=== PATIENT | female | born 1990 | race Caucasian/White ===

== ENCOUNTER 2019-09-14 12:04 | Outpatient (CLI) | payer MEDICAID, SELFPAY ==
[2019-09-17 09:27] LABS: SARS-CoV-2 RNA Undetected (Undetected); SARS-CoV-2 Specimen Source Nasopharynx
== END 2019-09-14 12:24 ==
PROVIDERS: Family Medicine; PCP Physician Assistant; Visit Provider Physician Assistant
DX: J06.9 Acute upper respiratory infection, unspecified (principal)
CPT/HCPCS: U0003

== ENCOUNTER 2019-10-20 18:15 | Emergency (ER) | payer MEDICAID, SELFPAY ==
[2019-10-20 18:18] VITALS: BP 129/79; PULSE 75; TEMP 36.7; O2SAT 99
--- NOTE | 2019-10-20 18:34 | ED.GENADUL_ITS ---
Discharge Plan Disposition Patient Disposition: HOME Condition: Stable Discharge Details Chief Complaint: Headache Clinical Impression: Headache Primary Care Provider: Chely Cartwright ED Provider: Cheryl Servin Home Meds and New Rx's Prescriptions: New ondansetron HCl [Zofran] 4 mg tablet 4 mg PO Q8H PRN (Reason: nausea and vomiting) Qty: 10 RF: 0 Discharge Instructions Instructions: General Headache (ED) Additional Instructions: Follow up with primary care provider in 3-5 days. Return to ED sooner if any worsening or concerns. Increase oral fluids. Please take Tylenol or Ibuprofen with food every 4-6 hours as needed for pain and swelling. Return if any worsening headache, vomiting, thunderclap sensation, fever or any concerns. Referrals: Chely Cartwright [Primary Care Provider] - Discharge Data Discharge Date/Time-TO BE ENTERED AT DEPARTURE: 10/20/19 21:05 Medical Decision Making 20-year-old female with a history of headaches reports that this morning she began the day with a headache which is progressively gotten worse throughout the day. She describes it as frontal and occipital tension type headache. She reports nausea and dry heaving, positive photosensitivity and sensitivity to sound. Denies fever, chills, neck stiffness no abdominal pain no diarrhea. Denies aura type symptoms. Denies any recent head trauma. Patient states that her pain is moderate to severe gets worse with movement and talking. Labs ordered including, CBC, CMP UA normal saline 10 mg of Compazine 25 mg of Benadryl ordered IV. Will re-evaluate after medications. Patient has no signs or symptoms of infectious origin, no meningeal signs, no focal neuro deficits at this time I do not feel that imaging is necessary. Headache was responsive to fluids and medications. 191: Patient reevaluation she reports that she is feeling much better after medications normal saline is infusing without difficulty she is received approximately 500 mL. Will allow her to get the rest of the fluid and evaluate her urinalysis. Differential Diagnosis includes migraine headache, tension type headache, subarachnoid hemorrhage, meningitis, pseudoaneurysm surgery, sinus thrombosis. HPI General Mode of arrival: ambulatory . Date/Time Provider Initiated Documentation: 10/20/19 18:23 . Limitations to Documentation: no limitations . Information obtained by: patient . HPI Narrative: 20-year-old female with a history of headaches reports that this morning she began the day with a headache which is progressively gotten worse throughout the day. She describes it as frontal and occipital tension type headache. She reports nausea and dry heaving, positive photosensitivity and sensitivity to sound. Denies fever, chills, neck stiffness no abdominal pain no diarrhea. Denies aura type symptoms. Denies any recent head trauma. Patient states that her pain is moderate to severe gets worse with movement and talking. Related Data Home Medications Medication Instructions Recorded Confirmed ondansetron HCl [Zofran] 4 mg PO Q8H PRN #10 tab 10/20/19 Previous Rx's Medication Instructions Recorded ondansetron HCl [Zofran] 4 mg PO Q8H PRN #10 tab 10/20/19 Allergies Allergy/AdvReac Type Severity Reaction Status Date / Time Corticosteroids Allergy Unverified 10/20/19 18:22 (Glucocorticoids) ranitidine Allergy Unverified 10/20/19 18:22 General Stated Complaint: Headache CARSON: 3 Review of Systems Narrative: Constitutional: Negative for weight loss, alert and oriented, well groomed, normal body habitus, appears comfortable. HEENT: Denies trauma,, blurry vision, nasal discharge, sore throat, trouble swallowing. Positive frontal and occipital headache. Chest: Denies chest pain, palpitations, irregular rhythm, hypertension. Respiratory: Denies Shortness of breath, cough, hemoptysis. GI: Denies abdominal pain, vomiting, diarrhea, constipation. Positive nausea and dry heaving : Denies dysuria, hematuria, flank pain, rectal bleeding. Neuro: Denies dizziness, blurry vision, weakness, syncope,or facial numbness. Positive photosensitivity and sensitivity to sound. Hematologic: Denies easy bruising, intolerance to heat or cold, hair loss. [facility] Social History Smoking/Tobacco Use Status: Never Alcohol Intake: never Drug use: Never Substance use type: does not use Do you feel safe at home: Yes Exam Narrative Exam Narrative: Constitutional: Alert and oriented x3. Appears stated age. Normal body habitus. Patient is non-sickly appearing. Head: Normocephalic, no trauma. Eyes: Pupils PERRLA, Red reflex noted, EOM's intact. Eyelids symmetrical without lesions, discharge, or swelling. ENNT: Bilateral TM's WNL, External ear normal to inspection, no mastoid TTP, swelling, or erythema, Nasal turbinates WNL, no nasal discharge. Normal dentition, Posterior pharynx WNL, no exudate. Neck supple Chest: RRR, Normal S1, S2, distal pulses intact. Resp: Lungs clear to auscultation bilaterally, no wheezes, rales, or rhonchi. Musculoskeletal: Normal gait, 5/5 strength to all four extremities. Skin: No suspicious rashes or lesions. Capillary refill less than 2 sec. Neurologic: Cranial nerves II-XII intact. Alert and oriented x 3. DTR's intact. No facial droop, prison guard supervisor equal upper extremities 5+, intact dorsiflexion and plantar flexion Hematologic/Lymphatic: No ecchymosis, no lymphadenopathy. Course Vital Signs Vital signs: Vital Signs Temperature 36.7 C 10/20/19 18:18 Pulse 75 10/20/19 18:18 Blood Pressure 129/79 10/20/19 18:18 Pulse Oximetry 99 10/20/19 18:18 Temperature 36.7 C 10/20/19 18:18 Temperature Source Skin 10/20/19 18:18 Pulse 75 10/20/19 18:18 Respiratory Effort Non-Labored 10/20/19 18:23 Blood Pressure 129/79 10/20/19 18:18 Blood Pressure Position Sitting 10/20/19 18:18 Pulse Oximetry 99 10/20/19 18:18 Oxygen Delivery Method Room Air 10/20/19 18:18 Oxygen Flow Rate 0 10/20/19 18:18 Pain Level 7 10/20/19 18:23
[2019-10-20] MEDS: Ketorolac 15 MG/ML VIAL IVP (18:48)
[2019-10-20] MEDS: Prochlorperazine 10 MG/2 ML VIAL IVP (18:49)
[2019-10-20] MEDS: Normal Saline Flush 10 ML SYR IVP (18:49)
[2019-10-20] MEDS: diphenhydrAMINE 50 MG/ML VIAL 25 MG IVP (18:49)
[2019-10-20] MEDS: Normal Saline 1,000 ML 1000 ML IV (18:50)
[2019-10-20 18:51] LABS: Abs Immature Grans 0.02 k/cumm (0.0-0.09); Absolute Basophil Count 0.02 k/cumm (0.0-0.2); Absolute Eosinophil Count 0.06 k/cumm (0.0-0.7); Absolute Lymphocyte Count 2.04 k/cumm (1.2-3.4); Absolute Monocyte Count 0.34 k/cumm (0.11-0.7); Absolute Neutrophil Count 4.27 k/cumm (1.2-6.7); Basophils % 0.3; Eosinophils % 0.9; HCT 38.7 % (36.0-46.0); HGB 12.7 g/dL (12.0-15.5); Immature Grans % 0.3 %; Lymphocytes % 30.2; Mean Corp. HGB Concentration 32.8 g/dL (32.0-36.0); Mean Corpuscular Hemoglobin 28.9 pg (27.0-33.0); Mean Corpuscular Volume 88.2 fL (80-95); Mean Platelet Volume 9.7 fL (8.0-11.0); Neutrophils % 63.3; Platelet Count 211 x1000/uL (130-400); RBC 4.39 m/cumm (4.00-5.20); RBC Distribution Width 13.5 % (11.7-14.6); White Blood Cell Count 6.75 k/cumm (4.4-10.8)
[2019-10-20 18:59] LABS: Anion Gap 9.9 mmol/L (3-11); BUN 9 mg/dL (7-18); CO2 26.1 mmol/L (21.0-32.0); CREATININE 0.75 mg/dL (0.55-1.02); Chloride 102 mmol/L (98-107); Glucose 107 mg/dL (74-106); Potassium 3.4 mmol/L (3.5-5.1); Sodium 138 mmol/L (136-145)
[2019-10-20 19:33] LABS: Bilirubin Negative (Negative); Blood Moderate (Negative); Clarity Clear (Clear); Glucose Negative (Negative); Ketones Negative (Negative); Leukocyte Esterase Negative (Negative); Nitrite Negative (Negative); Specific Gravity 1.025 (1.005-1.025); Urobilinogen 0.2 EU/dL (Up TO 0.2)
[2019-10-20 19:47] LABS: Bacteria Negative HPF (Negative); C & S Indicated? No; Casts Negative LPF (Negative); Crystals Negative HPF (Negative); Epithelial Cells Negative HPF (Negative); Mucus Negative (Negative); Other Cells Negative (Negative)
== END 2019-10-20 21:05 | disposition home or self-care (01) ==
LOC: ER 20:13
PROVIDERS: Emergency Provider Registered Nurse Emergency; PCP Physician Assistant
DX: R51 Headache (principal); R11.0 Nausea
CPT/HCPCS: 36415; 80048; 81025; 96361; 96374; 96375; 99284; 81003; 81015; 85025; J0780; J1200; J1885

== ENCOUNTER 2019-12-10 08:00 | Outpatient (CLI) | payer MEDICAID, SELFPAY ==
[2019-12-10 23:24] LABS: COVID-19 RT-PCR UVMMC Result Negative (Negative)
== END 2019-12-10 08:20 ==
PROVIDERS: PCP Physician Assistant; Visit Provider Surgery
DX: Z01.818 Encounter for other preprocedural examination (principal); Z11.59 Encounter for screening for other viral diseases
CPT/HCPCS: U0003

== ENCOUNTER 2019-12-13 07:05 | Day surgery (SDC) | payer MEDICAID, SELFPAY ==
[2019-12-13 07:20] VITALS: BP 113/76; PULSE 87; RESP 16; TEMP 36.3; O2SAT 97
[2019-12-13] MEDS: Lactated Ringers 1,000 ML 80 ML IV (07:53)
--- NOTE | 2019-12-13 09:00 | STOM_PTH ---
PATIENT: Avis Patel LOC: [facility] U#:[id number] AGE/SX: 29/F ROOM: RE12/13/[address]: Ana Monroe : 1990 BED: DIS: 12/13/2019 SPEC #: [id number] RECD: 12/13/19 12:37 STATUS: AMADA REMatty #: [id number] SKIP: 12/13/19 09:[address]: Ana Monroe DEPT: Surgical Specimen RECD BY: Yarelis Jewell ENTERED: 12/13/19 12:39 SP TYPE: STOMACH OTHR DR: Chely Cartwright Tissues: 1 - BIOPSY BOWEL 2 - STOMACH BIOPSY 3 - STOMACH BIOPSY 4 - ESOPHAGUS BIOPSY 5 - ESOPHAGUS BIOPSY Procedures: GROSS AND MICRO LEVEL 4 Comments: [id number]
[2019-12-13 09:13] VITALS: BP 99/47; PULSE 64; RESP 14; TEMP 36.4; O2SAT 100
--- NOTE | 2019-12-13 09:13 | W.PM.ENDDOP ---
Date of service: 12/13/19 Time of Service: 09:13 Endoscopy Report DATE OF PROCEDURE: 12/13/19 PRE-OP DIAGNOSIS: medication refractory GERD POST-OP DIAGNOSIS: same PROCEDURE: EGD w/ bx SURGEON: Ana Monroe ANESTHESIA: MAC ESTIMATED BLOOD LOSS: 1 PATHOLOGY: other COMPLICATIONS: None DISPOSITION: same day PROCEDURE DESCRIPTION: After informed consent was obtained the patient was take to the procedure room and placed in a supine position. Monitors were applied and a time out was done. The patients name, date of , procedure type, allergies to medications and metal in their body was reviewed. A bite block was placed and the patient was sedated. Once sedated and comfortable the gastroscope was advanced through the oropharynx which was grossly normal into the esophagus. The proximal and mid-esophagus were nl. In the distal esophagus there was nl noted. The scope was advanced into the stomach and through the pylorus into the 3rd portion of the duodenum. The duodenum was noted to be nl. Biopsies were done randomly in the duodenal bulb the antrum, and the greater curvature, the GE junction, and the distal esophagus. All specimens are retrieved and no changes noted.. The scope was retracted back into the stomach and biopsies were done to rule out H. pylori. There were no ulcers. The scope was retroflexed. The cardia and fundus were noted to be normal. There no a hiatal hernia noted. The scope was retracted back into the esophagus and biopsies were done of the GE junction to rule out Cuadra's. The Z line was regular. The GE junction was at nl cm. The scope was removed and the patient was woken up and taken back to [facility] in stable condition. in office in 2 wks. Results of today's study do not explain her continuing nausea. They seems to control of her reflux symptoms that she is having. It has not helped with nausea. We will check an ultrasound to rule out gallstones. Follow up:
[2019-12-13 09:18] VITALS: BP 109/52; PULSE 70; RESP 19; TEMP 36.4; O2SAT 99
[2019-12-13 09:23] VITALS: BP 113/71; PULSE 64; RESP 14; TEMP 36.4; O2SAT 98
--- NOTE | 2019-12-13 09:32 | W.PM.DSUDISC ---
Discharge Plan Disposition Patient Disposition: HOME Condition: Good Discharge Details Reason For Visit: GERD Attending Provider: Ana Monroe Primary Care Provider: Chely Cartwright Home Meds and New Rx's Prescriptions: No Action calcium carbonate [Tums] 200 mg calcium (500 mg) tablet,chewable 200 mg PO BID RF: 0 fluoxetine 60 mg tablet 40 mg PO DAILY RF: 0 omeprazole 20 mg capsule,delayed release(DR/EC) 20 mg PO DAILY RF: 0 naproxen sodium 275 mg tablet 550 mg PO Q8H RF: 0 Cryselle (28) 0.3-30 mg-mcg tablet 1 tab PO DAILY RF: 0 ondansetron HCl [Zofran] 4 mg tablet 4 mg PO Q8H PRN (Reason: nausea and vomiting) Qty: 10 RF: 0 Discharge Instructions Additional Instructions: Findings:normal- pd Bx Follow up:2-3 wks Continue with lifestyle modifications: no alcohol, tobacco products, Aspirin or NSAID's (ibuprofen, Motrin, Naprosyn, aleve, etc), soda pop/any carbonated beverages, caffeine (including tea & chocolate), and acidic foods, (tomatoes, citrus, onions, peppermints) spicy foods. Do not lie down for 30 minutes after eating, and do not eat 2 hours prior to bedtime. Avoid wearing tight fitting clothing/ belts. Schedule US Please call if you develop: fevers >101.5 Nausea or Vomiting Abdominal pain that is not transient DAY SURGERY UNIT POST COLONOSCOPY INSTRUCTIONS 1. Because there will be medication in your system for the next 24 hours, you may feel a little sleepy. Your coordination will be affected. Therefore: a. Do not drive or operate dangerous equipment for 24 hours. b. Do not drink alcohol beverages for 24 hours (not even beer). c. Plan to go home and rest for the day. 2. Generally there are no restrictions on your activity after a day or so has gone by, but you may feel a bit fatigued for a few days. 3 After you arrive home you may have a light meal and return to a normal diet as you can tolerate it without feeling sick to your stomach. 4. After surgery, you may feel pain or discomfort. This should be only transient, but if it persists please contact your doctor. 5. If there are any questions regarding the findings of your procedure, please feel free to contact your doctor. 6. If you are unable to contact your doctor with a problem, contact the hospital at [phone]. 7. Continue all your regular medications unless directed otherwise. I understand the above instructions and have no questions. Signature of Patient or Responsible Adult Escort Date/Time Name of Responsible Adult Escort Signature of Nurse Date/Time Activity:: No strenuous activity or lifting over 20 pounds x 24 hours Diet:: Small light meals x24 hours Discharge Orders Discharge Orders: Discharge Order (Routine); Ordered 12/13/19 Ordered By: Ana Monroe DS: Diagnosis Discharge Diagnosis (1) Chronic GERD: Status: Acute (2) Nausea: Status: Acute (3) Abdominal pain: Status: Acute
[2019-12-13 09:38] VITALS: BP 103/66; PULSE 67; RESP 17; TEMP 36.5; O2SAT 96
[2019-12-13 10:27] VITALS: BP 122/65; PULSE 62; RESP 18; TEMP 36.7; O2SAT 98
== END 2019-12-13 10:45 | disposition home or self-care (01) ==
PROVIDERS: PCP Physician Assistant; Visit Provider Surgery
PROC: 0DJ68ZZ Inspection of Stomach, Via Natural or Artificial Opening Endoscopic (ICD-10-PCS; CPT 43235; principal; 2019-12-13 08:15)
DX: R11.0 Nausea; R10.9 Unspecified abdominal pain; K31.89 Other diseases of stomach and duodenum; K21.0 Gastro-esophageal reflux disease with esophagitis
CPT/HCPCS: 43239; 81025; 88305; J2001; J2704

== ENCOUNTER 2019-12-17 00:15 | Outpatient (CLI) | payer MEDICAID, SELFPAY ==
--- NOTE | 2019-12-17 06:45 | DI.US_ITS ---
EXAM: US ABDOMEN CLINICAL HISTORY: nausea, chronic gerd, R11.0, K21.9 TECHNIQUE: Ultrasound abdomen performed using standard protocol. COMPARISON: No exams were available for comparison FINDINGS: LIVER: Mildly enlarged mild fatty infiltration. No focal liver lesions are seen.. GALLBLADDER: No evidence of cholelithiasis. No evidence of wall thickening. No pericholecystic fluid identified. KIDNEYS: Kidneys are symmetric in size. No evidence of renal calculi. No evidence of hydronephrosis. No renal mass or cyst identified. BILIARY SYSTEM: No intrahepatic or extrahepatic biliary ductal dilation. BRADEN'S SIGN: Negative. PANCREAS: Obscured by bowel gas. SPLEEN: Not enlarged. ABDOMINAL AORTA AND IVC: Visualized portions normal caliber. ASCITES: None seen. IMPRESSION: Mild hepatic steatosis. No biliary dilatation or cholelithiasis.. DATA REPOSITORY:
== END 2019-12-17 00:35 ==
PROVIDERS: PCP Physician Assistant; Visit Provider Surgery
DX: K21.9 Gastro-esophageal reflux disease without esophagitis (principal); R11.0 Nausea; K76.0 Fatty (change of) liver, not elsewhere classified
CPT/HCPCS: 76700

== ENCOUNTER 2019-12-27 02:45 | Outpatient (CLI) | payer MEDICAID, SELFPAY ==
[2019-12-27 10:31] LABS: Hemoglobin A1C 5.5 % (3.8-5.6)
[2019-12-27 11:40] LABS: Calculated LDL 152 mg/dL (<100); Cholesterol 209 mg/dL (<200); HDL Cholesterol 22 mg/dL (40-60); Triglyceride 175 mg/dL (<150)
== END 2019-12-27 03:05 ==
PROVIDERS: PCP Physician Assistant; Visit Provider Surgery
DX: K76.0 Fatty (change of) liver, not elsewhere classified (principal)
CPT/HCPCS: 36415; 80061; 83036

== ENCOUNTER 2020-04-22 08:58 | Outpatient (CLI) | payer MEDICAID, SELFPAY ==
[2020-04-26 16:10] LABS: Patient Race White; SARS-CoV-2 RNA Undetected (Undetected); SARS-CoV-2 Specimen Source Nasal
== END 2020-04-22 09:18 ==
PROVIDERS: PCP Physician Assistant; Visit Provider Physician Assistant
DX: Z20.828 Contact with and (suspected) exposure to other viral communicable diseases (principal)
CPT/HCPCS: U0003

== ENCOUNTER 2021-11-08 02:40 | Emergency (ER) | payer MEDICAID, SELFPAY ==
[2021-11-08 02:50] VITALS: BP 152/97; PULSE 79; RESP 18; TEMP 36.3; O2SAT 99
--- NOTE | 2021-11-08 03:00 | DI.CT_ITS ---
Exam(s) CT HEAD W EXAM: CT HEAD W CLINICAL HISTORY: frontal BRAUN, , eval venous sinus thrombos. TECHNIQUE: Imaging Protocol: Axial computed tomography images with coronal and sagittal reformatted images were created and reviewed. CONTRAST MATERIAL: Intravenous: Visipaque 320ml contrast volume:100 mL COMPARISON: No exams were available for comparison FINDINGS: Ventricles and Extra axial spaces: Normal in size and morphology for the patient's age. Hemorrhage: None. Cerebral parenchyma: Normal. Enhancement: No suspicious enhancement. [place]: Unremarkable. Midline shift: None. Brainstem/Cerebellum: Normal. Calvarium: Normal. Visualized Paranasal sinuses/Mastoids: Clear. There is superior sagittal sinus, straight sinus, transverse sinuses and sigmoid sinuses are patent. No filling defects are seen to suggest venous thrombosis. IMPRESSION: 1. Normal CT scan of the head. 2. No evidence of a venous sinus thrombosis. RADIATION DOSE DELIVERED: 1,083.23mGy.cm Total DLP DATA REPOSITORY: All CT scans at this facility are submitted to the National Radiology Data Registry (NRDR) Dose Index Registry (DIR) with the [employer] (ACR). RADIATION OPTIMIZATION: All CT scans at this facility use at least one of these dose optimization te chniques: automated exposure control; mA and/or kV adjustment per patient size (includes targeted exa ms where dose is matched to clinical indication); or iterative reconstruction.
--- NOTE | 2021-11-08 03:21 | ED.GENADUL_ITS ---
Discharge Plan Disposition Patient Disposition: HOME Condition: Good Discharge Details Clinical Impression: Headache Primary Care Provider: Chely Cartwright ED Provider: Taye Clark Home Meds and New Rx's Prescriptions: Continued calcium carbonate [Tums] 200 mg calcium (500 mg) tablet,chewable 200 mg PO BID fluoxetine 60 mg tablet 40 mg PO DAILY omeprazole 20 mg capsule,delayed release(DR/EC) 20 mg PO DAILY naproxen sodium 275 mg tablet 550 mg PO Q8H Cryselle (28) 0.3-30 mg-mcg tablet 1 tab PO DAILY pantoprazole 40 mg tablet,delayed release (DR/EC) 40 mg PO DAILY Qty: 30 12RF ondansetron HCl [Zofran] 4 mg tablet 4 mg PO Q8H PRN (Reason: nausea and vomiting) Qty: 10 0RF Discharge Instructions Instructions: General Headache (ED) Additional Instructions: If you notice any worsening of your symptoms, or any new symptoms such as vomiting, diarrhea, fever, chills, shortness of breath, chest pain, numbness, w eakness, or fainting , please return immediately to the emergency department for reevaluation. Please follow up with your primary care provider as soon as possible for reassessment and reevaluation. As always, it was a pleasure participating in your medical care today. Referrals: Chely Cartwright [Primary Care Provider] - Medical Decision Making 30-year-old female with a past medical history of chronic headache, who is 1 month , presents today for evaluation of headache. Patient states that at 3 PM this morning she had a gradual onset of her headaches. She has associated photophobia and phonophobia. She denies any significant visual changes, but has not been able to open her eyes secondary to the pain of the right. She states that she has pain in the back of her head, top of the head but also notably in the front of her head. She states that normally she never gets pain in the front. The patient denies any headache red flags of worst headache of life, thunderclap headache, neck pain, fever, chills, concerning family history of polycystic kidney disease, Marfan syndrome, Fatimah-Danlos syndrome, abdominal aortic aneurysm, aortic dissection, or intracranial aneurysm. She has no other complaints at this time. No other modifying factors. Patient has not had any neuro imaging in the past decade Physical exam demonstrates no focal neurologic deficits, no meningeal signs. Differential is highest for migraine, however of concern the patient is , and she does typically have frontal head pain. Differential does include cerebral venous sinus thrombosis. We will get a CT scan of the head with contrast. Will treat with migraine cocktail of Compazine, Toradol, acetaminophen, Benadryl, steroids. Will monitor closely and reassess. Of note she has a documented allergy for steroids but this was secondary to her chronic steroid eyedrop which increased her intraocular pressure, not from a one-time IV dose. 4:[address] scan results have returned, negative for evidence of venous thrombosis, no other acute process. On reassessment patient feels much better. Headache is go ne. Repeat neurologic assessment shows no focal neurologic. Patient stable for discharge. Patient is requesting that she go home. Diagnosis migraine headache. I have extensively reviewed the treatment plan and discharge instructions with the patient. I have addressed all patient concerns at this time. The patient was made aware of what symptoms to monitor for that would warrant a return to the emergency department. Discussed the plan with the patient, they demonstrate verbal understanding and agreement with our assessment and plan at this time. The documentation in this chart was dictated using [employer] dictation software. Please excuse any dictation errors. FINDINGS: Brain: Unremarkable white matter. No mass effect. No abnormal enhancing lesions. Cerebral ventricles: Unremarkable. No ventriculomegaly. Bones/joints: Unremarkable. No acute fracture. Paranasal sinuses: Visualized sinuses are unremarkable. No fluid levels. Mastoid air cells: Visualized mastoid air cells are well aerated. Soft tissues: Unremarkable. IMPRESSION: No acute intracranial abnormality FINDINGS: Superior sagittal sinus: Patent. Straight sinus: Patent. Transverse sinuses: Patent. Sigmoid sinuses: Patent. Internal jugular veins: Limited visualized internal jugular veins are patent. IMPRESSION: No venous thrombosis. Thank you for allowing us to participate in the care of your patient. Dictated and Authenticated by: Vinnie Cornejo MD 11/08/2021 4:35 AM Eastern Time ([place] & [place]) HPI General Date/Time Provider Initiated Documentation: 11/08/21 02:58 . HPI Narrative: 30-year-old female with a past medical history of chronic headache, who is 1 month , presents today for evaluation of headache. Patient states that at 3 PM this morning she had a gradual onset of her headaches. She has associated photophobia and phonophobia. She denies any significant visual changes, but has not been able to open her eyes secondary to the pain of the right. She states that she has pain in the back of her head, top of the head but also notably in the front of her head. She states that normally she never gets pain in the front. The patient denies any headache red flags of worst headache of life, thunderclap headache, neck pain, fever, chills, concerning family history of polycystic kidney disease, Marfan syndrome, Fatimah-Danlos syndrome, abdominal aortic aneurysm, aortic dissection, or intracranial aneurysm. She has no other complaints at this time. No other modifying factors. Patient has not had any neuro imaging in the past decade Related Data Home Medications Medication Instructions Recorded Confirmed ondansetron HCl 4 mg tablet 4 mg PO Q8H PRN nausea and 10/20/19 12/13/19 (Zofran) vomiting #10 tabs calcium carbonate 200 mg calcium 200 mg PO BID 12/04/19 12/13/19 (500 mg) chewable tablet (Tums) fluoxetine 60 mg tablet 40 mg PO DAILY 12/04/19 12/13/19 naproxen sodium 275 mg tablet 550 mg PO Q8H 12/04/19 12/13/19 norgestrel 0.3 mg-ethinyl 1 tab PO DAILY 12/04/19 12/13/19 estradiol 30 mcg tablet (Go (28)) omeprazole 20 mg capsule,delayed 20 mg PO DAILY 12/04/19 12/13/19 release pantoprazole 40 mg tablet,delayed 40 mg PO DAILY #30 tabs 12/19/19 release Previous Rx's Medication Instructions Recorded ondansetron HCl 4 mg tablet 4 mg PO Q8H PRN nausea and 10/20/19 (Zofran) vomiting #10 tabs pantoprazole 40 mg tablet,delayed 40 mg PO DAILY #30 tabs 12/19/19 release Allergies Allergy/AdvReac Type Severity Reaction Status Date / Time Corticosteroids Allergy It Unverified 11/08/21 02:55 (Glucocorticoids) increased the pressure in my eye ranitidine AdvReac Severe Massive Unverified 11/08/21 02:55 migraine General Stated Complaint: Headache CARSON: 3 Review of Systems All systems reviewed & are unremarkable except as noted in HPI and below PFSH All Active Problems (Updated 11/08/21 @ 04:47 by Taye Clark DO) Headache (Acute) Fatty liver (Acute) Abdominal pain (Acute) Chronic GERD (Acute) Nausea (Acute) Medical History Anxiety De Quervain's disease (tenosynovitis) Depression Folliculitis GERD (gastroesophageal reflux disease) Memory loss Migraine variant Prolonged depressive reaction as adjustment reaction Shoulder pain Tendonitis of ankle or foot Surgical History History of section Social History Smoking/Tobacco Use Status: Never Smoking risk assessment performed?: Yes Alcohol Intake: never Drug use: Never Substance use type: does not use Do you feel safe at home: Yes Do you feel safe in your relationship?: Yes Exam Narrative Exam Narrative: 1.Const: Well-nourished, Well-developed, appearing stated age 2.Eyes: PERRL, no conjunctival injection, and symmetrical lids. 3.ENT: Atraumatic external nose and ears. Moist MM. Neck: Symmetric, trachea midline, No thyromegaly. Patient demonstrates good movement of cervical neck. There is no nuchal rigidity, no nuchal tenderness. Patient is able to flex the neck without any difficulty or significant pain. Negative Kernig's and Brudzinski sign. 4.CVS: +S1/S2, No murmurs or gallops. Peripheral pulses 2+ and equal in all extremities. Brisk capillary refill in all extremities. 5.RESP: Unlabored respiratory effort. Clear to auscultation bilaterally. No wheezes rales or rhonchi 6.GI: Soft, Nontender/Nondistended, No hepatosplenomegaly. No guarding or rebound. 7.MSK: Normocephalic/Atraumatic, Extremities w/o deformity or ttp No cyanosis or clubbing, Normal movement of all extremities 8.Skin: Warm, Dry. No rashes or lesions. 9.Neuro: senior telecommunications engineer II-XII grossly intact. Sensation grossly intact, no focal neurologic deficits. All 6 cardinal planes of vision are fully intact. No evidence of rotatory or vertical nystagmus. The patient demonstrated a normal [id number], good dexterity. There was no evidence of dysdiadochokinesia. Patient was able to ambulate without difficulty. There was no wide-based gait. Romberg testing was normal. [id number] testing was normal. Sensation was intact bilaterally as well as muscle strength bilaterally for all extremities. Patient was able to verbalize butter cup with no slurring, or miss pr onunciation. 10.Psych: (AAO) x3. Appropriate mood and affect Course Vital Signs Vital signs: Vital Signs Temperature 36.3 C L 11/08/21 02:50 Pulse 79 11/08/21 02:50 Respiratory Rate 18 11/08/21 02:50 Blood Pressure 152/97 H 11/08/21 02:50 Pulse Oximetry 99 11/08/21 02:50 Temperature 36.3 C L 11/08/21 02:50 Temperature Source Temporal Artery Scan 11/08/21 02:50 Pulse 79 11/08/21 02:50 Respiratory Rate 18 11/08/21 02:50 Respiratory Effort Non-Labored 11/08/21 02:53 Blood Pressure 152/97 H 11/08/21 02:50 Blood Pressure Position Sitting 11/08/21 02:50 Pulse Oximetry 99 11/08/21 02:50 Oxygen Delivery Method Room Air 11/08/21 02:50 Oxygen Flow Rate 0 11/08/21 02:50 Pain Level 10 11/08/21 02:53
[2021-11-08] MEDS: diphenhydrAMINE 50 MG/ML VIAL 25 MG IVP (04:11)
[2021-11-08] MEDS: Normal Saline 1,000 ML 1000 ML IV (04:11)
[2021-11-08] MEDS: ACETAMINOPHEN 1,000 MG/100 ML BTL 400 MG IVPB (04:11)
[2021-11-08] MEDS: Ketorolac 15 MG/ML VIAL IVP (04:11)
[2021-11-08] MEDS: methylPREDNISolone SUCC 125 MG VIAL IVP (04:12)
[2021-11-08] MEDS: Prochlorperazine 10 MG/2 ML VIAL IVP (04:12)
--- NOTE | 2021-11-08 04:35 | DI.VRAD_ITS ---
PROCEDURE INFORMATION: Exam: CT Head With Contrast Exam date and time: 11/08/2021 3:21 AM Age: 30 years old Clinical indication: Other: Frontal BRAUN, , eval venous sinus thrombos TECHNIQUE: Imaging protocol: Computed tomography of the head with intravenous contrast. 3D rendering (Not supervised by radiologist): MIP and/or 3D reconstructed images were created by the technologist. Contrast material: 320; Contrast volume: 100 ml; Contrast route: INTRAVENOUS (IV); COMPARISON: No relevant prior studies available. FINDINGS: Brain: Unremarkable white matter. No mass effect. No abnormal enhancing lesions. Cerebral ventricles: Unremarkable. No ventriculomegaly. Bones/joints: Unremarkable. No acute fracture. Paranasal sinuses: Visualized sinuses are unremarkable. No fluid levels. Mastoid air cells: Visualized mastoid air cells are well aerated. Soft tissues: Unremarkable. IMPRESSION: No acute intracranial abnormality. PROCEDURE INFORMATION: Exam: CT Angiography Head With Contrast, Venography Exam date and time: 11/08/2021 3:21 AM Clinical indication: Other: Frontal BRAUN, , eval venous sinus thrombos TECHNIQUE: Imaging protocol: Computed tomography angiography of the head with contrast. Exam focused on the veins. COMPARISON: No relevant prior studies available. FINDINGS: Superior sagittal sinus: Patent. Straight sinus: Patent. Transverse sinuses: Patent. Sigmoid sinuses: Patent. Internal jugular veins: Limited visualized internal jugular veins are patent. IMPRESSION: No venous thrombosis. Dictated and Authenticated by: Vinnie Cornejo MD. Ordering:THERESE Kothari MD
[2021-11-08 04:56] VITALS: BP 103/68; PULSE 61; RESP 16; O2SAT 100
== END 2021-11-08 04:58 | disposition home or self-care (01) ==
PROVIDERS: Emergency Provider Student in an Organized Health Care Education/Training Program; PCP Physician Assistant
DX: G43.909 Migraine, unspecified, not intractable, without status migrainosus (principal); R51.9 Headache, unspecified
CPT/HCPCS: 96361; 96365; 96375; 99284; 70460; J0131; J0780; J1200; J1885; J2930

== ENCOUNTER 2023-01-09 21:26 | Emergency (ER) | payer MEDICAID, SELFPAY ==
[2023-01-09] VITALS (20 sets, daily range): BP systolic 105–123; BP diastolic 62–73; PULSE 78–103; RESP 12–36; TEMP 36.3; O2SAT 96–99
--- NOTE | 2023-01-09 21:30 | RT.EKG_ITS ---
APPROVED REPORT Exam: Resting ECG Reason for Exam: dizziness Patient Location: E HR:98 bpm ECG Measurements Heart Rate 98 AXIS NC 168 P 37 QRSd 109 QRS -17 QT 375 T 16 QTc 478 Conclusion Sinus rhythm...normal P axis, V-rate 60- 99 sinus rhythm, left axis
--- OUTSIDE RECORDS SUMMARY | 2023-01-09 21:39 | XMS_ITS | Continuity of Care Document ---
Author Name Unknown Organization [facility] Ambulatory Clinics Address [address] [place] [address] Care Team Providers Care Air Duct Mechanic Name Role Phone Chely Cartwright Primary Care Physician Unavaila ble Encounter [facility] NBR [id number] Date(s): 12/06/22 - 12/06/22 [facility] Ambulatory Clinics [address] [place] [address]- [place] Discharge Disposition: Home Allergies, Adverse Reactions, Alerts Substance Reaction Severity Status Eye Drop 1 Severe Active raNITIdine Headache Moderate Active 1Steroid eye drops increased eye pressure Assessment and Plan Future Appointments Appointment Date:12/30/2022 10:15:00 AM Scheduled Provider:Vanna William Location:[facility] Appointment Type:OB Follow Up Medications magnesium gluconate 250 mg oral tablet 250 mg 1 tab, Oral, Daily, # 30 tab, 0 Refill(s) Start Date: 12/03/22 Status: Ordered Multivitamins with FA 0.8 mg oral tablet 1 tab, Oral, Daily, # 60 tab, 0 Refill(s) Start Date: 12/03/22 Status: Ordered sertraline 25 mg oral tablet 25 mg = 1 tab, Oral, Daily, # 90 tab, 4 Refill(s), Pharmacy: [id number] Start Date: 03/26/22 Stop Date: 06/19/23 Status: Ordered Tums 500 mg oral tablet, chewable 500 mg = 1 tab, Chewed, Daily, PRN as needed for dyspepsia, # 12 tab, 0 Refill(s) Start Date: 12/03/22 Status: Ordered Problem List Condition Confirmation Course Effective Dates Status Health St atus Informant Previous section 1 Confirmed Active Normal in multigravida in first trimester Confirmed Active Confirmed 09/21/22 Active Rh negative Confirmed Active 28529, 2021 Procedures Procedure Date Related Diagnosis Body Site Status delivery 2021 [facility] ed delivery 2017 [facility] ed Social History Social History Type Response Smoking Status Smoking tobacco use: Never tobacco user;Never entered on: 12/03/22 Sex Patient Care team information Care Team Personnel Name: Chely Cartwright Position: Physician Member Role: Primary Care Physician
--- OUTSIDE RECORDS SUMMARY | 2023-01-09 21:39 | XMS_ITS | Continuity of Care Document ---
Author Name Unknown Organization [facility] Ambulatory Clinics Address [address] [place] [address] Care Team Providers Care Telesales Agent Name Role Phone Chely Cartwright Primary Care Physician Unavaila ble Encounter [facility] NBR [id number] Date(s): 12/30/22 - 12/30/22 [facility] Ambulatory Clinics [address] [place] [address]- [place] Encounter Diagnosis Encounter for supervision of normal in multigravida in second trimester(Discharge Diagnosis) - 12/30/22 Encounter for screening examination for sexually transmitted disease(Discharge Diagnosis) - 12/30/22 Discharge Disposition: Home or Self Care Attending Physician: Vanna William Allergies, Adverse Reactions, Alerts Substance Reaction Severity Status Eye Drop 1 Severe Active raNITIdine Headache Moderate Active 1Steroid eye drops increased eye pressure Assessment and Plan Future Appointments Appointment Date:02/09/2023 02:00:00 PM Scheduled Provider:Carroll Terry MD Location:[facility] Appointment Type:OB Follow Up Future Scheduled Tests Radiology* US OB Greater Than 14 Weeks 02/09/23 Functional Status 12/30/22 Other exposure to Infectious Disease Non e Medications magnesium gluconate 250 mg oral tablet 250 mg 1 tab, Oral, Daily, # 30 tab, 0 Refill(s) Start Date: 12/03/22 Status: Ordered Multivitamins with FA 0.8 mg oral tablet 1 tab, Oral, Daily, # 60 tab, 0 Refill(s) Start Date: 12/03/22 Status: Ordered sertraline 25 mg oral tablet 25 mg = 1 tab, Oral, Daily, # 90 tab, 4 Refill(s), Pharmacy: [id number] Start Date: 03/26/22 Stop Date: 06/19/23 Status: Ordered Tums 500 mg oral tablet, chewable 500 mg = 1 tab, Chewed, Daily, PRN as needed for dyspepsia, # 12 tab, 0 Refill(s) Start Date: 12/03/22 Status: Ordered Problem List Condition Confirmation Course Effective Dates Status Health St atus Informant Previous section 1 Confirmed Active Normal in multigravida in first trimester Confirmed Active Encounter for supervision of normal in multigravida in second trimester Confirmed Active Confirmed 09/21/22 Active Rh negative Confirmed Active 75608, 2021 Procedures Procedure Date Related Diagnosis Body Site Status delivery 2021 [facility] ed delivery 2017 [facility] ed Results Most recent to oldest [Reference Range]: 1 Protein Urine Dipstick Trace (12/30/22 10:26 AM) Glucose Urine Dipstick Negative (12/30/22 10:26 AM) Urine Color Urine Dipstick Dark yellow (12/30/22 10:26 AM) Urine Appearance Urine Dipstick Cloudy (12/30/22 10:26 AM) Vital Signs Most recent to oldest [Reference Range]: 1 2 Blood Pressure [90-140/60-90 mmHg] 86/58 mmHg *LOW* (12/30/22 10:26 AM) Weight 111.7 kg (12/30/22 10:26 AM) Weight Measured (lbs) 246.256 lb (12/30/22 10:26 AM) [place] Body Weight Calculated 69.587 kg (12/30/22 10:26 AM) Height 179 cm (12/30/22 10:26 AM) Height/Length Measured (inches) 70.47 in ch (12/30/22 10:26 AM) BSA Measured 2.36 m2 (12/30/22 10:26 AM) Body Mass Index 34.86 kg/m2 (12/30/22 10:26 AM) 34.86 kg/m2 (12/30/22 10:26 AM) Social History Social History Type Response Smoking Status Smoking tobacco use: Never tobacco user;Never entered on: 12/03/22 Sex Note * Jessica Tang: PERFORM Event Display: OB Note Authored Date: [id number] Transcribed Labs Entered On: 12/28/2022 16:29 EDT Performed On: 12/28/2022 16:27 EDT by Jessica Tang Transcribed Labs Blood Type, Transcribed : A negative Rubella,Transcribed : Immune Rubella Date Performed : 12/03/2022 EDT Hepatitis B, Transcribed : Negative Hepatitis B Date Performed : 12/03/2022 EDT HIV Antibodies, Transcribed : Negative HIV Date Performed : 12/03/2022 EDT RPR, Transcribed : Negative RPR Date Performed : 12/03/2022 EDT ABS, Transcribed : Negative ABS Date Performed : 12/03/2022 EDT Other Transcribed Labs : urine culture done 12/03/2022 Genetic Testing Date Performed : 12/03/2022 EDT Genetic Testing, Transcribed : Yes Genetic Testing, Results Text : MaterniT 21: negative Jessica Tang - 12/28/2022 16:27 EDT Electronically Signed on 12/28/2022 04:27 PM Jessica Tang Physician Outpatient Note * Vanna William: PERFORM Event Display: Office Clinic Note Physician Authored Date: [id number] WALLACE MELTON :1990 Age:32 years Sex:Female Visit Date:12/30/2022 Primary Care Physician: Chely Cartwright RAMU/EGA Gestational Age (EGA) and RAMU? * Note: EGA calculated as of 12/30/2022 ?? RAMU:??06/28/2023?EGA*:??14 weeks 2 days ?Type:??Authoritative?Method Date:??09/21/2022 ?Method:??Last Menstrual Period??(09/21/2022) ?Confirmation:??Confirmed ?Description:??-- ?Comments:??-- ?Entered by:??Jessica Tang on 12/03/2022? Other RAMU Calculations for this : ?No additional RAMU calculations have been recorded for this Chief Complaint OB follow appointment, 14.2 weeks, no concerns Physical Exam Vitals & Measurements BP:??86/58?? HT:??179??cm?? WT:??111.7??kg?? BMI:??34.86?? BMI:??34.86?? BSA:??2.36?? Risk Factors Risk Factors, Antepartum Current Preg: Previous uterine scarring, Other: Previous Sectionsx2 (12/03/22) Assessment/Plan 1.??Encounter for supervision of normal in multigravida in second trimester??Z34.82 Feeling good. 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 Recommended staying well hydrated. Set up US for 5-6 weeks. No lof/bleeding. Some intermittent cramping. Ordered: US OB Greater Than 14 Weeks, 12/30/22, Routine, Reason: anatomy screening, Transport Mode: Ambulatory, Encounter for supervision of normal in multigravida in second trimester ?? 2.??Encounter for screening examination for sexually transmitted disease??Z11.3 Ordered: Chlamydia trachomatis and Neisseria gonorrhoeae (GeneXpert), Urine, Routine Collect, 12/30/22 10:30:00 EDT, Once, Nurse collect, Print Label, Encounter for screening examination for sexually transmitted disease ?? Cards Exam and Notes ?? Exams and Notes ?? Date:??12/30/22 EGA:??14w2d Weight (lbs kg):??*246... Fundal Height (cm):??14 ? Blood Pressure (mmHg):??86/58 ? Cervix Exam (Dil cm/Eff %/Sta -):--/--/--?? Labor S/S:??None Urine Glucose:??Negative Urine Protein:??Trace Next Visit:??+5 weeks from 12/30/2022 Baby A?FHR:??155 ? Movement:?Presentation:??-- ? Date:??12/03/22 EGA:??10w3d Weight (lbs kg):??*250... Fundal Height (cm):??10 ? Blood Pressure (mmHg):??114/76 ? Cervix Exam (Dil cm/Eff %/Sta -):--/--/--?? Labor S/S:??None Urine Glucose:??Negative Urine Protein:??Trace Next Visit:??+4 weeks from 12/03/2022 Baby A?FHR:??150 ? Movement:?Presentation:??-- ? Date:??10/20/22 EGA:??4w1d?? Weight (lbs kg):??*248... Fundal Height (cm):??-- ? Blood Pressure (mmHg):??110/77 ? Cervix Exam (Dil cm/Eff %/Sta -):--/--/--?? Labor S/S:?? Urine Glucose:?? Urine Protein:?? Next Visit:? Problem List/Past Medical History Ongoing Encounter for supervision of normal in multigravida in second trimester Normal in multigravida in first trimester Previous section Rh negative Historical Procedure/Surgical History ??? delivery (2021)??? delivery (2017) Medications magnesium gluconate 250 mg oral tablet, 250 mg= 1 tab, Oral, Daily Multivitamins with FA 0.8 mg oral tablet, 1 tab, Oral, Daily sertraline 25 mg oral tablet, 25 mg= 1 tab, Oral, Daily, 4 refills Tums 500 mg oral tablet, chewable, 500 mg= 1 tab, Chewed, Daily, PRN Allergies Eye Drop raNITIdine??(Headache) Social History Alcohol Never Electronic Cigarette/Vaping Electronic Cigarette Use: Never. Employment/School Employed, Work/School description: self employed.. Home/Environment Lives with Children, Spouse. Living situation: Home/Independent. Sexual Sexually active: No. Substance Use Never Tobacco Never tobacco user Tobacco Use:. Never Smokeless Tobacco use:. Family History Alive and well: Sister, Brother, Son and Son. Breast cancer: Mother. Heart disease: Father. PCM Transcribed Labs ABO/Rh Echo: A NEG Blood Type, Transcribed: A negative Genetic Testing Date Performed: 12/03/22 Genetic Testing, Results Text: MaterniT 21: negative Genetic Testing, Transcribed: Yes Hep Bs Ag: Non Reactive1 Hepatitis B Date Performed: 12/03/22 Hepatitis B, Transcribed: Negative HIV Antibodies, Transcribed: Negative HIV Date Performed: 12/03/22 RPR Date Performed: 12/03/22 RPR, Transcribed: Negative Rubella Date Performed: 12/03/22 Rubella,Transcribed: Immune Electronically Signed on 12/30/22 11:11 AM Vanna William Patient Care team information Care Team Personnel Name: Chely Cartwright Position: Physician Member Role: Primary Care Physician
--- OUTSIDE RECORDS SUMMARY | 2023-01-09 21:39 | XMS_ITS | Continuity of Care Document ---
Author Name Unknown Organization [facility] Ambulatory Clinics Address [address] [place] [address] Care Team Providers Care Track Helper Name Role Phone Chely Jerry Primary Care Physician Unava ilable Encounter [facility] NBR [id number] Date(s): 01/07/23 - 01/07/23 [facility] Ambulatory Clinics [address] [place] [address]- Encounter Diagnosis Encounter for supervision of normal in multigravida in second trimester(Discharge Diagnosis) - 01/07/23 Previous section(Discharge Diagnosis) - 01/07/23 Rh negative(Discharge Diagnosis) - 01/07/23 Hypotension determined by examination(Discharge Diagnosis) - 01/07/23 Discharge Disposition: Home or Self Care Attending Physician: Brenden Grande Allergies, Adverse Reactions, Alerts Substance Reaction Severity Status Eye Drop 1 Severe Active raNITIdine Headache Moderate Active 1Steroid eye drops increased eye pressure Assessment and Plan Future Appointments Appointment Date:02/09/2023 02:00:00 PM Scheduled Provider:Carroll Terry MD Location:[facility] Appointment Type:OB Follow Up Future Scheduled Tests Laboratory* Cortisol AM 01/07/23 Radiology* US OB Greater Than 14 Weeks 02/09/23 Medications magnesium gluconate 250 mg oral tablet 250 mg 1 tab, Oral, Daily, # 30 tab, 0 Refill(s) Start Date: 12/03/22 Status: Ordered Multivitamins with FA 0.8 mg oral tablet 1 tab, Oral, Daily, # 60 tab, 0 Refill(s) Start Date: 12/03/22 Status: Ordered sertraline 25 mg oral tablet 25 mg = 1 tab, Oral, Daily, # 90 tab, 4 Refill(s), Pharmacy: [id number] Start Date: 03/26/22 Stop Date: 06/19/23 Status: Ordered Tums 500 mg oral tablet, chewable 500 mg = 1 tab, Chewed, Daily, PRN as needed for dyspepsia, # 12 tab, 0 Refill(s) Start Date: 12/03/22 Status: Ordered Problem List Condition Confirmation Course Effective Dates Status Health St atus Informant Previous section 1 Confirmed Active Hypotension determined by examination Confirmed Active Encounter for supervision of normal in multigravida in second trimester Confirmed Active Confirmed 09/21/22 Active Rh negative Confirmed Active 80256, 2021 Procedures Procedure Date Related Diagnosis Body Site Status delivery [address] [facility] ed delivery [address] [facility] ed Results Most recent to oldest [Reference Range]: 1 Protein Urine Dipstick Trace (01/07/23 3:31 PM) Glucose Urine Dipstick Negative (01/07/23 3:31 PM) Urine Color Urine Dipstick Yellow (01/07/23 3:31 PM) Urine Appearance Urine Dipstick Cloudy (01/07/23 3:31 PM) Vital Signs Most recent to oldest [Reference Range]: 1 2 Peripheral Pulse Rate [60-100 bpm] 83 bp m (01/07/23 3:31 PM) 83 bpm (01/07/23 3:31 PM) Blood Pressure [90-140/60-90 mmHg] 100/6 2mmHg (01/07/23 3:31 PM) Weight 112.1 kg (01/07/23 3:31 PM) Weight Measured (lbs) 247.138 lb (01/07/23 3:31 PM) [place] Body Weight Calculated 69.587 kg (01/07/23 3:31 PM) Height 179 cm (01/07/23 3:31 PM) Height/Length Measured (inches) 70.47 in ch (01/07/23 3:31 PM) BSA Measured 2.36 m2 (01/07/23 3:31 PM) Body Mass Index 34.99 kg/m2 (01/07/23 3:31 PM) 34.99 kg/m2 (01/07/23 3:31 PM) Social History Social History Type Response Smoking Status Smoking tobacco use: Never tobacco user;Never entered on: 12/03/22 Sex Note * Jessica Tang: PERFORM Event Display: OB Note Authored Date: [id number] Transcribed Labs Entered On: 01/06/2023 8:41 EDT Performed On: 01/06/2023 8:39 EDT by Jessica Tang Transcribed Labs Blood Type, Transcribed : A negative Rubella,Transcribed : Immune Rubella Date Performed : 12/03/2022 EDT Hepatitis B, Transcribed : Negative Hepatitis B Date Performed : 12/03/2022 EDT HIV Antibodies, Transcribed : Negative HIV Date Performed : 12/03/2022 EDT RPR, Transcribed : Negative RPR Date Performed : 12/03/2022 EDT Chlamydia Date Performed : 12/30/2022 EDT Gonorrhea Date Performed : 12/30/2022 EDT Chlamydia, Transcribed : Negative Gonorrhea, Transcribed : Negative ABS, Transcribed : Negative ABS Date Performed : 12/03/2022 EDT Other Transcribed Labs : urine culture done 12/03/2022 Genetic Testing Date Performed : 12/03/2022 EDT Genetic Testing, Transcribed : Yes Genetic Testing, Results Text : MaterniT 21: negative Jessica Tang - 01/06/2023 8:39 EDT Electronically Signed on 01/06/2023 08:39 AM Jessica Tang Physician Outpatient Note * Brenden Grande P: PERFORM Event Display: Office Clinic Note Physician Authored Date: [id number] WALLACE MELTON :1990 Age:32 years Sex:Female Visit Date:01/07/2023 Primary Care Physician: Chely Jerry RAMU/EGA Gestational Age (EGA) and RAMU? * Note: EGA calculated as of 01/07/2023 ?? RAMU:??06/28/2023?EGA*:??15 weeks 3 days ?Type:??Authoritative?Method Date:??09/21/2022 ?Method:??Last Menstrual Period??(09/21/2022) ?Confirmation:??Confirmed ?Description:??-- ?Comments:??-- ?Entered by:??Clyde Jessica on 12/03/2022? Other RAMU Calculations for this : ?No additional RAMU calculations have been recorded for this Chief Complaint OB follow appointment, 15.3 weeks, appointment per Dr. Terry, BP concerns, light headed, tingling in legs, chest pressure, extreme fatigue History of Present Illness Pt being fatigued,??dizzy,??often??little to no??energy.?? She does not have much of an appetite. ??States that she drinks plenty of water throughout the day. Physical Exam Vitals & Measurements HR:??83??(Peripheral)?? HR:??83??(Peripheral)?? BP:??100/62?? SpO2:??96%?? HT:??179??cm?? WT:??112.1??kg?? BMI:??34.99?? BMI:??34.99?? BSA:??2.36?? General: Alert and oriented, well nourished, no acute distress Eye: Pupils equal, EOMI HEENT: Normocephalic, grossly normal hearing, moist oral mucosa, no scleral icterus Lungs: Clear to auscultation, non-labored respiration Heart: Normal rate, regular rhythm, no murmurs Abdomen: Nontender, gravid Musculoskeletal: Grossly normal range of motion and strength, no tenderness or swelling Skin: Skin is warm, dry, no rashes Neurologic: Awake, alert, and oriented X4 Psychiatric: Cooperative, appropriate mood and affect Risk Factors Risk Factors, Antepartum Current Preg: Previous uterine scarring, Other: Previous Sectionsx2 (12/03/22) Assessment/Plan 1.??Encounter for supervision of normal in multigravida in second trimester??Z34.82 ?? 2.??Previous section??Z98.891 ?? 3.??Rh negative??Z67.91 ?? 4.??Hypotension determined by examination??O26.52 Ordered: ACTH, Plasma LC, Blood, Routine, 01/07/23, Once, Lab Collect, Hypotension determined by examination, Order for future visit Comprehensive Metabolic Panel, Blood, Routine, 01/07/23, Once, Lab Collect, Hypotension determined by examination, Order for future visit Cortisol, Blood, Routine, 01/07/23, Once, Lab Collect, Hypotension determined by examination, Orderfor future visit Cortisol AM, Blood, Routine, 01/07/23, Once, Lab Collect, Hypotension determined by examination, Order for future visit ?? Today's appointment we discussed her symptoms??and current .?? She has decreased appetite??and has not gained much weight.?? Reviewed that most likely causes for hypotension are??normal physiologic??changes that occur in ,??inadequate??nutrition,??electrolyte imbalance,??and dehydration. ??There are also??medical conditions involving the adrenal gland, infection,??and cardiovascular disease that can cause hypotension as well. ??Recommended??lab??testing,?nutritious??meals 3times a day??with adequate calories??2000 - 2200 raimundo/day,??and maintain adequate??hydration.?? Also??lay on her side instead of her back at night.?? If symptoms??worsen or do not improve, we can consider??maternal echo and cardiology consultation. Cards Exam and Notes ?? Exams and Notes ?? Date:??01/07/23 EGA:??15w3d Weight (lbs kg):??*247... Fundal Height (cm):??15 ? Blood Pressure (mmHg):??100/62 ? Cervix Exam (Dil cm/Eff %/Sta -):--/--/--?? Labor S/S:??None Urine Glucose:??Negative Urine Protein:??Trace Next Visit:??+4 weeks from 01/07/2023 Baby A?FHR:??150 ? Movement:?Presentation:??-- ? Date:??12/30/22 EGA:??14w2d Weight (lbs kg):??*246... Fundal Height [...] of normal in multigravida in second trimester Hypotension determined by examination Previous section Rh negative Historical Procedure/Surgical History [...] A NEG Blood Type, Transcribed: A negative Chlamydia Date Performed: 12/30/22 Chlamydia, Transcribed: Negative Genetic Testing Date Performed: 12/03/22 Genetic Testing, Results Text: MaterniT 21: negative Genetic Testing, Transcribed: Yes Gonorrhea Date Performed: 12/30/22 Gonorrhea, Transcribed: Negative Hep Bs Ag: Non Reactive1 Hepatitis B Date Performed: 12/03/22 Hepatitis B, Transcribed: Negative HIV Antibodies, Transcribed: Negative HIV Date Performed: 12/03/22 RPR Date Performed: 12/03/22 RPR, Transcribed: Negative Rubella Date Performed: 12/03/22 Rubella,Transcribed: Immune Electronically Signed on 01/07/23 04:28 PM Brenden Grande Patient Care team information Care Team Personnel Name: Chely Jerry Position: Physician Member Role: Primary Care Physician
--- OUTSIDE RECORDS SUMMARY | 2023-01-09 21:40 | XMS_ITS | Continuity of Care Document ---
Author Name Unknown Organization [facility] Address [address] [place] [address] Care Team Providers Care Marine Safety Officer Name Role Phone Chely Cartwright Primary Care Physician Unavaila ble Encounter [facility] NBR [id number] Date(s): 12/30/22 - 12/30/[address] [address] [place] Encounter Diagnosis Encounter for screening examination for sexually transmitted disease(Discharge Diagnosis) - 12/30/22 Encounter for screening for infections with a predominantly sexual mode of transmission(Final) - Encounter for supervision of other normal , second trimester(Final) - Discharge Disposition: Home or Self Care Attending Physician: Vanna William Admitting Physician: Vanna William Referring Physician: CHELY CARTWRIGHT Allergies, Adverse Reactions, Alerts Substance Reaction Severity Status Eye Drop 1 Severe Active raNITIdine Headache Moderate Active 1Steroid eye drops increased eye pressure Assessment and Plan Future Appointments Appointment Date:02/09/2023 02:00:00 PM Scheduled Provider:Carroll Terry MD Location:[facility] Appointment Type:OB Follow Up Future Scheduled Tests [...] Daily, # 90 tab, 4 Refill(s), Pharmacy: [facility] Start Date: 03/26/22 Stop Date: 06/19/23 [...] Confirmed 09/21/22 Active Rh negative Confirmed Active 2021 Procedures Procedure Date Related Diagnosis Body Site Status delivery 2021 [facility] ed delivery 2017 Complet ed Results Laboratory List Name Date Chlamydia trachomatis and Neisseria gono rrhoeae (GeneXpert) 12/30/22 Most recent to oldest [Reference Range]: 1 Chlamydia trachomatis DNA -GeneXpert [No t Detected] Not Detected (12/30/22 10:41 AM) Neisseria gonorrhoeae DNA -GeneXpert [No t Detected] Not Detected (12/30/22 10:41 AM) Social History Social History Type Response Smoking Status Smoking tobacco use: Never tobacco user;Never entered on: 12/03/22 Sex Patient Care team information Care Team Personnel Name: Chely Carwtright Position: Physician Member Role: Primary Care Physician
--- OUTSIDE RECORDS SUMMARY | 2023-01-09 21:40 | XMS_ITS | Continuity of Care Document ---
Author Name Unknown Organization [facility] Ambulatory Clinics Address [address] [place] [address] Care Team Providers Care Mathematical Engineering Technician Name Role Phone Chely Cartwright Primary Care Physician Unavaila ble Encounter [facility] NBR [id number] Date(s): 12/03/22 - 12/03/22 [facility] [address] [place] [address] Encounter Diagnosis Normal in multigravida in first trimester(Discharge Diagnosis) - 12/03/22 Previous section(Discharge Diagnosis) - 12/03/22 Discharge Disposition: Home or Self Care Attending Physician: Brenden Grande Allergies, Adverse Reactions, Alerts Substance Reaction Severity Status Eye Drop 1 Severe Active raNITIdine Headache Moderate Active 1Steroid eye drops increased eye pressure Assessment and Plan Future Appointments Appointment Date:12/30/2022 10:15:00 AM Scheduled Provider:Vanna William Location:[facility] Appointment Type:OB Follow Up Functional Status 12/03/22 Other exposure to Infectious Disease Non e [...] # 90 tab, 4 Refill(s), Pharmacy: [id number] Start Date: 03/26/22 Stop Date: 06/19/23 [...] Confirmed 09/21/22 Active Rh negative Confirmed Active , 2021 Procedures Procedure Date Related Diagnosis Body Site Status delivery 2021 [facility] ed delivery 2017 [facility] ed Results Most recent to oldest [Reference Range]: 1 Leukocytes Urine Dipstick Trace (12/03/22 10:29 AM) Nitrite Urine Dipstick Negative (12/03/22 10:29 AM) Urobilinogen Urine Dipstick 0.2 mg/dl (12/03/22 10:29 AM) Protein Urine Dipstick Trace (12/03/22 10:29 AM) pH Urine Dipstick 5 (12/03/22 10:29 AM) Blood Urine Dipstick Negative (12/03/22 10:29 AM) Specific [place] Urine Dipstick 1.030 (12/03/22 10:29 AM) Ketones Urine Dipstick Negative (12/03/22 10:29 AM) Bilirubin Urine Dipstick Negative (12/03/22 10:29 AM) Glucose Urine Dipstick Negative (12/03/22 10:29 AM) Urine Color Urine Dipstick Dark yellow (12/03/22 10:29 AM) Urine Appearance Urine Dipstick Clear (12/03/22 10:29 AM) Vital Signs Most recent to oldest [Reference Range]: 1 2 Blood Pressure [90-140/60-90 mmHg] 114/7 6mmHg (12/03/22 10:29 AM) Weight 113.5 kg (12/03/22 10:29 AM) 113.5 kg (12/03/22 10:29 AM) Weight Measured (lbs) 250.224 lb (12/03/22 10:29 AM) [place] Body Weight Calculated 69.587 kg (12/03/22 10:29 AM) Height 179 cm (12/03/22 10:29 AM) Height/Length Measured (inches) 70.47 in (12/03/22 10:29 AM) BSA Measured 2.38 m2 (12/03/22 10:29 AM) Body Mass Index 35.42 kg/m2 (12/03/22 10:29 AM) 35.42 kg/m2 (12/03/22 10:29 AM) Social History Social History Type Response Smoking Status Smoking tobacco use: Never tobacco user;Never entered on: 12/03/22 Sex Physician Outpatient Note * Brenden Grande: PERFORM Event Display: Office Clinic Note Physician Authored Date: [id number] JOANNA MELTONSSPRINCESS Goetz :1990 Age:32 years Sex:Female Visit Date:12/03/2022 Primary Care Physician: Chely Cartwright RAMU/EGA Gestational Age (EGA) and RAMU? * Note: EGA calculated as of 12/03/2022 ?? RAMU:??06/28/2023?EGA*:??10 weeks 3 days ?Type:??Authoritative?Method Date:??09/21/2022 ?Method:??Last Menstrual Period??(09/21/2022) ?Confirmation:??Confirmed ?Description:??-- ?Comments:??-- ?Entered by:??Jessica Tang on 12/03/2022? Other RAMU Calculations for this : ?No additional RAMU calculations have been recorded for this Chief Complaint Initial OB appointment, 10.3 weeks, PN labs and MaterniT 21 today History of Present Illness 32yo 002, LMP- 09/21/2022 The patient is here today for her Initial OB appointment. ??Her menstrual cycles??were regular and she is certain of her dates.?? She is having??nausea and vomiting, however she is able to tolerate some foods. ??She is staying hydrated. ??She is able to take a vitamin. ??There has not beenany cramping or bleeding.?? Her obstetrical history is significant for Previous sections x2. Physical Exam Vitals & Measurements BP:??114/76?? HT:??179??cm?? WT:??113.5??kg?? WT:??113.5??kg?? BMI:??35.42?? BMI:??35.42?? BSA:??2.38?? General: Alert and oriented, well nourished, no acute distress Eye: Pupils equal, EOMI HEENT: Normocephalic, grossly normal hearing, moist oral mucosa, no scleral icterus Neck: Supple, no thyroid enlargement, no lymphadenopathy Lungs: Clear to auscultation, non-labored respiration Heart: Normal rate, regular rhythm, no murmurs Abdomen:??Nontender, gravid Musculoskeletal: Grossly normal range of motion and strength, no tenderness or swelling Skin: Skin is warm, dry, no rashes Neurologic: Awake, alert, and oriented X4 Psychiatric: Cooperative, appropriate mood and affect ?? Office US (Transvaginal)-normal gestational sac with pole and yolk sac present, CRL 10-6/7weeks size,??normal??FHM present Risk Factors Risk Factors, Antepartum Current Preg: Previous uterine scarring, Other: Previous Sectionsx2 (12/03/22) Assessment/Plan 1.??Normal in multigravida in first trimester??Z34.81 Ordered: ABO/Rh Echo, Blood, Routine, 12/03/22, Once, Lab Collect, Normal in multigravida in firsttrimester, Order for future visit ABSC Echo, Blood, Routine, 12/03/22, Once, Lab Collect, Normal in multigravida in first trimester, Order for future visit CBC w/ Diff, Blood, Routine, 12/03/22, Once, Lab Collect, Normal in multigravida in firsttrimester, Order for future visit Hepatitis B Surface Antigen, Blood, Routine, 12/03/22, Once, Lab Collect, Normal in multigravida in first trimester, Order for future visit HIV Ag/Ab Combo 1/2, Blood, Routine, 12/03/22, Once, Lab Collect, Normal in multigravida in first trimester, Order for future visit MaterniT 21 PLUS w/ESS and SCA Ref, Blood, Routine, 12/03/22, Once, Lab Collect, Normal in multigravida in first trimester, Order for future visit Rubella IgG, Blood, Routine, 12/03/22, Once, Lab Collect, Normal in multigravida in firsttrimester, Order for future visit Syphilis Abs Qual, Blood, Routine, 12/03/22, Once, Lab Collect, Normal in multigravida infirst trimester, Order for future visit Urine Culture, Urine, Clean Catch, Routine collect, RT - Routine, 12/03/22 10:35:00 EDT, Once, Nurse collect, Normal in multigravida in first trimester ?? 2.??Previous section??Z98.891 ?? At today's appointment, we discussed??our plan for care. ??She desires Repeat Section??at 39 weeks around 06/21/2023.?? Plans to go to the lab today for??her Panel and Maternity 21. Cards Exam and Notes ?? Exams and Notes ?? Date:??12/03/22 EGA:??10w3d Weight (lbs kg):??*250... Fundal Height [...] Next Visit:? Problem List/Past Medical History Ongoing Normal in multigravida in first trimester Previous section Historical Procedure/Surgical History ??? delivery (2021)??? delivery [...] Mother. Heart disease: Father. PCM Transcribed Labs No qualifying data Electronically Signed on 12/03/22 11:24 AM Brenden Grande Patient Care team information Care Team Personnel Name: Chely Cartwright Position: Physician Member Role: Primary Care Physician
--- OUTSIDE RECORDS SUMMARY | 2023-01-09 21:40 | XMS_ITS | Continuity of Care Document ---
Author Name Unknown Organization [facility] Address [address] [place] [id number] Care Team Providers Care Compliance Consultant Name Role Phone Chely Jerry Primary Care Physician Unava ilable [facility] [id number] Date(s): 01/07/23 - 01/07/[address] [address] Discharge Disposition: Home or Self Care Attending Physician: Brenden Grande Admitting Physician: Brenden Grande Allergies, Adverse Reactions, Alerts Substance Reaction Severity Status Eye Drop 1 Severe Active raNITIdine Headache Moderate Active 1Steroid eye drops increased eye pressure Assessment and Plan Future Appointments Appointment Date:02/09/2023 02:00:00 PM Scheduled Provider:Carroll Terry MD Location:[facility] Appointment Type:OB Follow Up Diagnostic Tests Pending * ACTH, Plasma LC 01/07/23 Future Scheduled Tests Laboratory* Cortisol AM 01/07/23 [...] Daily, # 90 tab, 4 Refill(s), Pharmacy: [facility] #[id number] Start Date: 03/26/22 Stop Date: 06/19/23 [...] Diagnosis Body Site Status delivery 2021 [facility] ed delivery 2017 [facility] ed Results Laboratory List Name Date Comprehensive Metabolic Panel 01/07/23 Cortisol 01/07/23 Most recent to oldest [Reference Range]: 1 BUN [8-26 mg/dL] 6 mg/dL *LOW* (01/07/23 4:31 PM) Glucose Level [74-106 mg/dL] 88 mg/dL (01/07/23 4:31 PM) Potassium Level [3.5-5.1 mmol/L] 3.6 mmo l/L (01/07/23 4:31 PM) AST [15-41 IntlUnit/L] 20 IntlUnit/L (01/07/23 4:31 PM) ALT [14-54 IntlUnit/L] 28 IntlUnit/L (01/07/23 4:31 PM) Osmolality [275-295 mOsm/kg] 265 mOsm/kg *LOW* (01/07/23 4:31 PM) Sodium Level [134-143 mmol/L] 134 mmol/L (01/07/23 4:31 PM) Calcium Level [8.9-10.3 mg/dL] 9.2 mg/dL (01/07/23 4:31 PM) Albumin Level [3.5-5.0 g/dL] 3.7 g/dL (01/07/23 4:31 PM) Protein Total [6.5-8.1 g/dL] 6.7 g/dL (01/07/23 4:31 PM) Bilirubin Total [0.2-1.2 mg/dL] 0.3 mg/d L (01/07/23 4:31 PM) Alk Phos [38-130 IntlUnit/L] 71 IntlUnit /L (01/07/23 4:31 PM) CO2 [22-32 mmol/L] 20 mmol/L *LOW* (01/07/23 4:31 PM) Chloride Level [98-111 mmol/L] 105 mmol/ L (01/07/23 4:31 PM) A/G Ratio 1.2 *NA* (01/07/23 4:31 PM) BUN/Creat Ratio [8.0-20.0] 18.2 (01/07/23 4:31 PM) Globulin 3.0 *NA* (01/07/23 4:31 PM) Creatinine Level [0.44-1.00 mg/dL] 0.33 mg/dL *LOW* (01/07/23 4:31 PM) Anion Gap [3.0-12.0] 9.0 (01/07/23 4:31 PM) Cortisol, Untimed 4.3 mcg/dL *NA* (01/07/23 4:31 PM) eGFR CKD-EPI [>=60 mL/min/1.73 m2] 141 m L/min/1.73 m2 (01/07/23 4:31 PM) Social History Social History Type Response Smoking Status Smoking tobacco use: Never tobacco user;Never entered on: 12/03/22 Sex Patient Care team information Care Team Personnel Name: Chely Jerry Position: Physician Member Role: Primary Care Physician
--- OUTSIDE RECORDS SUMMARY | 2023-01-09 21:40 | XMS_ITS | Continuity of Care Document ---
Author Name Unknown Organization [facility] Ambulatory Clinics Address [address] [place] [address] Care Team Providers Care Intermodal Customer Service Name Role Phone Chely Cartwright Primary Care Physician Unavaila ble Encounter [facility] NBR [id number] Date(s): 12/30/22 - 12/30/22 [facility] Ambulatory Clinics [address] [place] [address] [place] Discharge Disposition: Home Allergies, Adverse Reactions, Alerts Substance Reaction Severity Status Eye Drop 1 Severe Active raNITIdine Headache Moderate Active 1Steroid eye drops increased eye pressure Assessment and Plan Future Appointments Appointment Date:02/09/2023 02:00:00 PM Scheduled Provider:Carroll Terry MD Location:[facility] Appointment Type:OB Follow Up Future Scheduled [...] # 90 tab, 4 Refill(s), Pharmacy: [id number] Start Date: 03/26/22 Stop Date: 06/19/23 [...] Related Diagnosis Body Site Status delivery 2021 [facility] ed delivery 2017 [facility] ed Social History Social History Type Response Smoking Status Smoking tobacco use: Never tobacco user;Never entered on: 12/03/22 Sex Patient Care team information Care Team Personnel Name: Chely Cartwright Position: Physician Member Role: Primary Care Physician
--- OUTSIDE RECORDS SUMMARY | 2023-01-09 21:40 | XMS_ITS | Continuity of Care Document ---
Author Name Unknown Organization [facility] Address [address] [place] [phone] Care Team Providers Care Communication Electronic Technician Name Role Phone Chely Cartwright Primary Care Physician Unavaila ble Encounter [facility] NBR [id number] Date(s): 12/03/22 - 12/03/[address] [address] Encounter Diagnosis Normal in multigravida in first trimester(Discharge Diagnosis) - 12/03/22 Discharge Disposition: Home or Self Care Attending Physician: Brenden Grande Admitting Physician: Brenden Grande Allergies, Adverse Reactions, Alerts Substance Reaction Severity Status Eye Drop 1 Severe Active raNITIdine Headache Moderate Active 1Steroid eye drops increased eye pressure Assessment and Plan Future Appointments Appointment Date:12/30/2022 10:15:00 AM Scheduled Provider:Vanna William Location:[facility] Appointment Type:OB Follow Up Diagnostic Tests Pending * MaterniT 21 PLUS w/ESS and SCA Ref 12/03/22 Medications magnesium gluconate 250 mg oral tablet 250 mg 1 tab, Oral, Daily, # 30 tab, 0 Refill(s) Start Date: 12/03/22 Status: Ordered Multivitamins with FA 0.8 mg oral tablet 1 tab, Oral, Daily, # 60 tab, 0 Refill(s) Start Date: 12/03/22 Status: Ordered sertraline 25 mg oral tablet 25 mg = 1 tab, Oral, Daily, # 90 tab, 4 Refill(s), Pharmacy: [facility] #[id number] Start Date: 03/26/22 Stop Date: 06/19/23 [...] Related Diagnosis Body Site Status delivery 2021 [facility] ed delivery 2017 [facility] ed Results Laboratory List Name Date ABO/Rh Echo 12/03/22 ABSC Echo (Antibody Screen Echo) 12/03/22 CBC w/ Diff 12/03/22 HIV Ag/Ab Combo 1/2 (HIV 1/0/2 Antibodie s, p24 Ag) 12/03/22 Hepatitis B Surface Antigen 12/03/22 Rubella IgG 12/03/22 Syphilis Abs Qual 12/03/22 Automated Diff 12/03/22 Most recent to oldest [Reference Range]: 1 WBC [4.8-10.8 K/mcL] 8.3 K/mcL (12/03/22 11:36 AM) RBC [4.20-5.40 Million/mcL] 4.42 Million /mcL (12/03/22 11:36 AM) Neutro Auto [42.2-75.2 %] 69.0 % (12/03/22 11:36 AM) Lymph Auto [20.5-51.1 %] 24.8 % (12/03/22 11:36 AM) [place] Auto [1.7-9.3 %] 4.6 % (12/03/22 11:36 AM) Basophil Auto [0.0-0.8 %] 0.2 % (12/03/22 11:36 AM) Baso Absolute [0.0-0.2 K/mcL] 0.0 K/mcL (12/03/22 11:36 AM) MCV [81.0-99.0 fL] 84.8 fL (12/03/22 11:36 AM) MCHC [32.0-36.0 g/dL] 33.6 g/dL (12/03/22 11:36 AM) Lymph Absolute [1.2-3.4 K/mcL] 2.0 K/mcL (12/03/22 11:36 AM) Hct [37.0-47.0 %] 37.5 % (12/03/22 11:36 AM) [place] Absolute [0.1-0.6 K/mcL] 0.4 K/mcL (12/03/22 11:36 AM) MCH [27.0-31.0 pg] 28.5 pg (12/03/22 11:36 AM) Neutro Absolute [1.4-6.5 K/mcL] 5.7 K/mc L (12/03/22 11:36 AM) Hgb [12.0-16.0 g/dL] 12.6 g/dL (12/03/22 11:36 AM) MPV [7.4-10.4 fL] 10.2 fL (12/03/22 11:36 AM) Hep Bs Ag [Non Reactive] Non Reactive 1 (12/03/22 11:36 AM) Platelets [130-400 K/mcL] 237 K/mcL (12/03/22 11:36 AM) Eos Absolute [0.0-0.2 K/mcL] 0.1 K/mcL (12/03/22 11:36 AM) RDW-CV [11.5-14.5 %] 14.6 % *HI* (12/03/22 11:36 AM) Imm Gran Absolute 0.05 *NA* (12/03/22 11:36 AM) Imm Gran Auto [0.0-0.5 %] 0.6 % *HI* (12/03/22 11:36 AM) Rubella IgG 200.6 2 *NA* (12/03/22 11:36 AM) Syphilis Abs Qual [Non Reactive] Non Janie ctive 3 (12/03/22 11:36 AM) ABO/Rh Echo A NEG *Unknown* (12/03/22 11:36 AM) HIV 1/2 Ag/Ab Combo by [facility]IA [Non Reactiv e] Non Reactive (12/03/22 11:36 AM) Eos, Auto [0.00-3.00 %] 0.80 % (12/03/22 11:36 AM) ABSC Echo Negative ABSC (12/03/22 11:36 AM) 1Interpretive Data: HBsAG is a screening assay. All reactive HBsAg tests will reflex to a confirmatory assay. Interpretative Clara: REACTIVE RESULTS ARE REPORTED TO THE [facility] 2Interpretive Data: REFERENCE RANGE: (IU/Ml): <5.0: non-immune, 5.0-9.9: PRINCE ZONE, >=10.0: IMMUNE 3Interpretive Data: Interpretative Clara: Reactive results are confirmed by replicate analysis, reflexed for confirmatory testing, and reported to the [facility]. Orders for Microbiology Reports Name Date Urine Culture 12/03/22 Microbiology Reports TEST:Urine Culture STATUS:Order in Progress BODY SITE: SOURCE:Urine, Clean Catch COLLECTED DATE/TIME:12/03/22 10:35 AM PRELIMINARY REPORT No growth of uropathogens Social History Social History Type Response Smoking Status Smoking tobacco use: Never tobacco user;Never entered on: 12/03/22 Sex Patient Care team information Care Team Personnel Name: Chely Cartwright Position: Physician Member Role: Primary Care Physician
--- OUTSIDE RECORDS SUMMARY | 2023-01-09 21:40 | XMS_ITS | Continuity of Care Document ---
Author Name Unknown Organization [facility] Ambulatory Clinics Address [address] [place] [address] Care Team Providers Care Logging Equipment Mechanic Name Role Phone Chely Cartwright Primary Care Physician Unavaila ble Encounter [facility] NBR [id number] Date(s): 12/06/22 - 12/06/22 [facility] Ambulatory Clinics [address] [place] [address] [place] Discharge Disposition: Home Allergies, Adverse Reactions, Alerts Substance Reaction Severity Status Eye Drop 1 Severe Active raNITIdine Headache Moderate Active 1Steroid eye drops increased eye pressure Assessment and Plan Future Appointments Appointment Date:12/30/2022 10:15:00 AM Scheduled Provider:Vanna William Location:[facility] Appointment Type:OB Follow Up Medications magnesium gluconate [...] # 90 tab, 4 Refill(s), Pharmacy: [facility] Start Date: 03/26/22 Stop Date: 06/19/23 [...] Confirmed 09/21/22 Active Rh negative Confirmed Active 09104, 2021 Procedures Procedure Date Related Diagnosis Body Site Status delivery 2021 [facility] ed delivery 2017 [facility] ed Social History Social History Type Response Smoking Status Smoking tobacco use: Never tobacco user;Never entered on: 12/03/22 Sex Patient Care team information Care Team Personnel Name: Chely Cartwright Position: Physician Member Role: Primary Care Physician
[2023-01-09 21:53] LABS: Abs Immature Grans 0.03 10^3/uL (0.0-0.06); Absolute Basophil Count 0.03 10^3/uL (0.0-0.2); Absolute Eosinophil Count 0.05 10^3/uL (0.0-0.7); Absolute Lymphocyte Count 1.17 10^3/uL (1.2-3.4); Absolute Monocyte Count 0.37 10^3/uL (0.1-0.8); Absolute Neutrophil Count 5.27 10^3/uL (1.2-6.7); Basophils % 0.4; Eosinophils % 0.7; HCT 36.1 % (36.0-46.0); HGB 12.2 g/dL (11.2-15.7); Immature Grans % 0.4; Lymphocytes % 16.9; MCH 28.6 pg (27.0-33.0); MCHC 33.8 % (32.0-36.0); MCV 85 fL (80-95); MPV 9.6 fL (8.0-11.0); Monocytes % 5.3; Neutrophils % 76.3; Platelet Count 185 10^3/uL (130-400); RBC 4.27 10^6/uL (3.93-5.22); RDW 14.6 % (11.7-14.6); RDW-SD 45.1 fL; WBC 6.92 10^3/uL (4.4-10.8)
[2023-01-09] MEDS: Normal Saline 1,000 ML 1000 ML IV (21:53)
[2023-01-09] MEDS: Ondansetron 4 MG/2 ML VIAL IVP (21:53)
--- NOTE | 2023-01-09 21:59 | W.ED.GENAD ---
Discharge Plan Disposition Patient Disposition: Home Condition: Improving Discharge Details Clinical Impression: Nausea Primary Care Provider: Chely Cartwright ED Provider: Sandip Calix Home Meds and New Rx's Prescriptions: No Action calcium carbonate [Tums] 200 mg calcium (500 mg) tablet,chewable 200 mg PO BID Patient Comments: pt states not taking 01/09/23 fluoxetine 60 mg tablet 40 mg PO DAILY Patient Comments: pt states not taking 01/09/23 omeprazole 20 mg capsule,delayed release(DR/EC) 20 mg PO DAILY Patient Comments: pt states not taking 01/09/23 naproxen sodium 275 mg tablet 550 mg PO Q8H Patient Comments: pt states not taking 01/09/23 Cryselle (28) 0.3-30 mg-mcg tablet 1 tab PO DAILY Patient Comments: pt states not taking 01/09/23 pantoprazole 40 mg tablet,delayed release (DR/EC) 40 mg PO DAILY Qty: 30 12RF Patient Comments: pt states not taking 01/09/23 ondansetron HCl [Zofran] 4 mg tablet 4 mg PO Q8H PRN (Reason: nausea and vomiting) Qty: 10 0RF Patient Comments: pt states not taking 01/09/23 sertraline 25 mg Tablet 25 mg PO DAILY calcium gluconate 500 mg Tablet 250 mg PO DAILY Discharge Instructions Instructions: Acute Nausea and Vomiting (ED) Additional Instructions: Please follow-up closely with your SCOUT EXECUTIVE. Return to the emergency department for any worsening symptoms Medical Decision Making 32-year-old female at 16 weeks gestation presents with nausea and vomiting over the past couple of weeks, vomited earlier this evening feeling better since then, no abdominal cramping no vaginal bleeding or discharge. Patient is hemodynamically stable. Bedside ultrasound showing live IUP with normal heart rate and movement. Fingerstick normal, EKG normal sinus rhythm left axis. Will obtain basic labs fluids Zofran close reassessment. We will also send UA. Consider hyperemesis gravidarum versus dehydration versus electrolyte abnormality versus UTI low suspicion for threatened or intra-abdominal infection such as cholecystitis or appendicitis. 23: 32 rest comfortably no acute distress. Labs and urine largely unremarkable. Patient has close follow-up with her SCOUT EXECUTIVE. No vomiting here in department. Hemodynamically stable. Home care instructions and return precautions HPI General Date/Time Provider Initiated Documentation: 01/09/23 21:27. HPI Narrative: 32-year-old female at 16 weeks gestation, presents with nausea and vomiting intermittent over the last couple of weeks, last vomited earlier this evening, feeling better currently. No vaginal bleeding or discharge, no cramping Related Data Home Medications Medication Instructions Recorded Confirmed ondansetron HCl 4 mg tablet 4 mg PO Q8H PRN nausea and 10/20/19 12/13/19 (Zofran) vomiting #10 tabs calcium carbonate 200 mg calcium 200 mg PO BID 12/04/19 12/13/19 (500 mg) chewable tablet (Tums) fluoxetine 60 mg tablet 40 mg PO DAILY 12/04/19 12/13/19 naproxen sodium 275 mg tablet 550 mg PO Q8H 12/04/19 12/13/19 norgestrel 0.3 mg-ethinyl 1 tab PO DAILY 12/04/19 12/13/19 estradiol 30 mcg tablet (Go (28)) omeprazole 20 mg capsule,delayed 20 mg PO DAILY 12/04/19 12/13/19 release pantoprazole 40 mg tablet,delayed 40 mg PO DAILY #30 tabs 12/19/19 release calcium gluconate 500 mg tablet 250 mg PO DAILY 01/09/23 01/09/23 sertraline 25 mg tablet 25 mg PO DAILY 01/09/23 01/09/23 Previous Rx's Medication Instructions Recorded ondansetron HCl 4 mg tablet 4 mg PO Q8H PRN nausea and 10/20/19 (Zofran) vomiting #10 tabs pantoprazole 40 mg tablet,delayed 40 mg PO DAILY #30 tabs 12/19/19 release Allergies Allergy/AdvReac Type Severity Reaction Status Date / Time Corticosteroids Allergy It Unverified 01/09/23 21:32 (Glucocorticoids) increased the pressure in my eye ranitidine AdvReac Severe Massive Unverified 01/09/23 21:32 migraine General Stated Complaint: Dizzy/Sync CARSON: 3 Review of Systems Narrative: Review of Systems Constitutional: negative Eyes: negative ENT: negative Cardiovascular: negative Respiratory: negative Gastrointestinal: Nausea : negative Musculoskeletal: negative Skin: negative Neurologic: negative Psych: negative PFSH All Active Problems (Updated 01/09/23 @ 23:32 by Sandip Calix MD) Fatty liver (Acute) Abdominal pain (Acute) Chronic GERD (Acute) Nausea (Acute) Medical History Anxiety De Quervain's disease (tenosynovitis) Depression Folliculitis GERD (gastroesophageal reflux disease) Memory loss Migraine variant Prolonged depressive reaction as adjustment reaction Shoulder pain Tendonitis of ankle or foot Surgical History History of section Social History Smoking/Tobacco Use Status: Never Smoking risk assessment performed?: Yes Alcohol Intake: never Drug use: Never Substance use type: does not use Do you feel safe at home: Yes Do you feel safe in your relationship?: Yes Exam Narrative Exam Narrative: Physical Examination General: alert, awake, cooperative, resting comfortably, no acute distress HEENT: normocephalic, atraumatic; PERRL, EOM intact, conjunctiva normal; no nasal discharge; moist mucous membranes, oral and pharyngeal mucosa normal, tolerating secretions Neck: supple, trachea midline; full ROM Chest: normal to inspection Respiratory: normal respiratory effort, speaking in full sentences, clear to auscultation, no wheezing, rales or rhonchi Cardiac: regular rate, regular rhythm, S1S2 intact, no murmurs rubs or gallops GI: abdomen soft, non-tender, non-distended; no palpable mass or hepatosplenomegaly Skin: no lesions, rashes or trauma appreciated Neuro: AAOx3, normal speech, moving all extremities Psych: Appropriate mood and affect Course Vital Signs Vital signs: Vital Signs Temperature 36.3 C L 01/09/23 21:33 Pulse 103 H 01/09/23 21:33 Respiratory Rate 18 01/09/23 21:33 Blood Pressure 123/73 01/09/23 21:33 Pulse Oximetry 98 01/09/23 21:33 Temperature 36.3 C L 01/09/23 21:33 Temperature Source Tympanic 01/09/23 21:33 Pulse 103 H 01/09/23 21:33 Respiratory Rate 18 01/09/23 21:33 Respiratory Effort Normal 01/09/23 21:46 Blood Pressure 123/73 01/09/23 21:33 Blood Pressure Position Sitting 01/09/23 21:33 Pulse Oximetry 98 01/09/23 21:33 Oxygen Delivery Method Room Air 01/09/23 21:33 Oxygen Flow Rate 0 01/09/23 21:33 Pain Level 1 01/09/23 21:33 Lab/Test Results Lab/Test Results: Laboratory Tests Range/Units 01/09/23 21:45 WBC (4.4-10.8) 10^3/uL 6.92 RBC (3.93-5.22) 10^6/uL 4.27 Hgb (11.2-15.7) g/dL 12.2 Hct (36.0-46.0) % 36.1 MCV (80-95) fL 85 MCH (27.0-33.0) pg 28.6 MCHC (32.0-36.0) % 33.8 RDW (11.7-14.6) % 14.6 Plt Count (130-400) 10^3/uL 185 MPV (8.0-11.0) fL 9.6 Immature Gran % 0.4 Neutrophils % 76.3 Lymphocytes % 16.9 Monocytes % 5.3 Eosinophils % 0.7 Basophils % 0.4 Nucleated RBC % (0.0-0.3) % 0.0 Absolute Neutrophils (1.2-6.7) 10^3/uL 5.27 Absolute Lymphocytes (1.2-3.4) 10^3/uL 1.17 L Absolute Monocytes (0.1-0.8) 10^3/uL 0.37 Absolute Eosinophils (0.0-0.7) 10^3/uL 0.05 Absolute Basophils (0.0-0.2) 10^3/uL 0.03
[2023-01-09 22:14] LABS: ALT 31 U/L (14-59); AST 17 U/L (15-37); Albumin 3.4 g/dL (3.4-5.0); Alkaline Phosphatase 89 U/L (46-116); Anion Gap 10.4 mmol/L (3-11); BUN 3 mg/dL (7-18); Bilirubin, Total 0.3 mg/dL (0.2-1.0); CO2 23.6 mmol/L (21.0-32.0); CREATININE 0.5 mg/dL (0.55-1.02); Calcium 8.9 mg/dL (8.5-10.1); Chloride 102 mmol/L (98-107); Estimated GFR 127.72 (mL/min/1.73m2); Glucose 103 mg/dL (74-106); Lipase 27 U/L (16-77); Potassium 3.3 mmol/L (3.5-5.1); Sodium 136 mmol/L (136-145); Total Protein 7.2 g/dL (6.4-8.2)
[2023-01-09] MEDS: Acetaminophen 325 MG TAB 650 MG PO (23:12)
[2023-01-09 23:17] LABS: Bilirubin Negative (Negative); Blood Trace-intact (Negative); Clarity Clear (Clear); Glucose Negative (Negative); Ketones Trace mg/dL (Negative); Leukocyte Esterase Negative (Negative); Nitrite Negative (Negative); Specific Gravity 1.015 (1.005-1.025)
[2023-01-09 23:26] LABS: Bacteria Few HPF (Negative); Epithelial Cells Moderate HPF (Negative); WBC 0-2 HPF (0-5)
[2023-01-09 23:27] LABS: C & S Indicated? No; Crystals Negative HPF (Negative); Mucus Moderate (Negative)
== END 2023-01-09 23:42 | disposition home or self-care (01) ==
PROVIDERS: Emergency Provider Emergency Medicine; PCP Physician Assistant
DX: O21.0 Mild hyperemesis gravidarum (principal); O26.892 Other specified pregnancy related conditions, second trimester; R10.84 Generalized abdominal pain; Z3A.16 16 weeks gestation of pregnancy
CPT/HCPCS: 36415; 80053; 82962; 83690; 93005; 96360; 99283; 81003; 81015; 85025; 93010; J2405

== ENCOUNTER 2023-05-11 18:57 | Emergency (ER) | payer MEDICAID, SELFPAY ==
[2023-05-11] VITALS (7 sets, daily range): BP systolic 119–142; BP diastolic 65–89; PULSE 75–109; RESP 16–18; TEMP 36.4–36.7; O2SAT 99–100
--- NOTE | 2023-05-11 19:32 | W.ED.GENAD ---
Discharge Plan Disposition Patient Disposition: Home Condition: Good Discharge Details Clinical Impression: Headache Primary Care Provider: Chely Cartwright ED Provider: Teresa Zaman Home Meds and New Rx's Prescriptions: No Action calcium carbonate [Tums] 200 mg calcium (500 mg) tablet,chewable 200 mg PO BID Patient Comments: pt states not taking 01/09/23 fluoxetine 60 mg tablet 40 mg PO DAILY Hold Instructions: pt states not taking 05/10/23 Patient Comments: pt states not taking 01/09/23 omeprazole 20 mg capsule,delayed release(DR/EC) 20 mg PO DAILY Hold Instructions: pt states not taking 05/10/23 Patient Comments: pt states not taking 01/09/23 naproxen sodium 275 mg tablet 550 mg PO Q8H Hold Instructions: pt states not taking 05/10/23 Patient Comments: pt states not taking 01/09/23 Cryselle (28) 0.3-30 mg-mcg tablet 1 tab PO DAILY Hold Instructions: pt states not taking 05/10/23 Patient Comments: pt states not taking 01/09/23 pantoprazole 40 mg tablet,delayed release (DR/EC) 40 mg PO DAILY Qty: 30 12RF Patient Comments: pt states not taking 01/09/23 ondansetron HCl [Zofran] 4 mg tablet 4 mg PO Q8H PRN (Reason: nausea and vomiting) Qty: 10 0RF Hold Instructions: pt states not taking 05/10/23 Patient Comments: pt states not taking 01/09/23 sertraline 25 mg Tablet 25 mg PO DAILY calcium gluconate 500 mg Tablet 250 mg PO DAILY Hold Instructions: pt states not taking 05/10/23 Discharge Instructions Instructions: General Headache (ED) Additional Instructions: Call your MATTRESS WEAVER in the morning to schedule a follow up visit for this week. Seek medical attention immediately for any new or worsening symptoms including if your headache and nausea returns, you have abdominal pain, vision changes, vaginal bleeding/leaking, contractions, decreased movement, or if you have any other concerns. Medical Decision Making 32yo F two prior c-sections reportedly 33w gestation gets care at [facility] presenting for severe headache and nausea. Uncomplicated thus far. No abdominal pain, visual changes, LE edema, vaginal bleeding, or vaginal discharge. She has had migraines in the past and this feels similar, these typically resolve with naproxen however cannot take currently. BP 142/89 on arrival, vital signs and physical exam otherwise reassuring, normal FHR, no RUQ abdominal tenderness. BRAUN & N may represent her typical headache however given newly slightly elevated BP concern for developing preeclampsia. Normal neurologic exam. Not concerning for intracranial bleed, mass, CVA. Would not get imaging/CT. Will medicate with tylenol and reglan for symptoms, give IVFB. Labs reviewed as below, CBC reassuring with normal Hg and platelets, CMP with no indication of liver damage, normal LDH. UA negative for protein; prot/cr ratio sent and borderline at 0.39, unclear significance. Blood type A negative. NST performed and evaluated by OB, reactive. Workup reassuring against preeclampia, HELLP. On reassessment she reports feeling much better, headache and nausea resolved, requesting discharge home. BP 119/73. Advised to followup with her OB tomorrow regarding her symptoms and urine. Discharged home; discharge instructions including return precautions were reviewed with patient who verablized understanding. Alll questions were answered and they are in full agreement with the plan. Lab Data Lab results reviewed: Yes I reviewed the patient's lab results. Labs: Laboratory Tests Range/Units 05/11/23 05/11/23 19:46 19:48 WBC (4.4-10.8) 10^3/uL 8.85 RBC (3.93-5.22) 10^6/uL 4.28 Hgb (11.2-15.7) g/dL 11.8 Hct (36.0-46.0) % 35.7 L MCV (80-95) fL 83 MCH (27.0-33.0) pg 27.6 MCHC (32.0-36.0) % 33.1 RDW (11.7-14.6) % 14.6 Plt Count (130-400) 10^3/uL 217 MPV (8.0-11.0) fL 10.1 Immature Gran % 0.5 Neutrophils % 67.1 Lymphocytes % 25.0 Monocytes % 6.2 Eosinophils % 0.9 Basophils % 0.3 Nucleated RBC % (0.0-0.3) % 0.0 Absolute Neutrophils (1.2-6.7) 10^3/uL 5.94 Absolute Lymphocytes (1.2-3.4) 10^3/uL 2.21 Absolute Monocytes (0.1-0.8) 10^3/uL 0.55 Absolute Eosinophils (0.0-0.7) 10^3/uL 0.08 Absolute Basophils (0.0-0.2) 10^3/uL 0.03 Sodium (136-145) mmol/L 139 Potassium (3.5-5.1) mmol/L 3.6 Chloride (98-107) mmol/L 104 Carbon Dioxide (21.0-32.0) mmol/L 26.0 Anion Gap (3-11) mmol/L 9.0 BUN (7-18) mg/dL 6 L Creatinine (0.55-1.02) mg/dL 0.5 L Est GFR (CKD-EPI 2020) (mL/min/1.73m2) 127.72 Glucose (74-106) mg/dL 108 H Calcium (8.5-10.1) mg/dL 9.8 Magnesium (1.8-2.4) mg/dL 2.1 Total Bilirubin (0.2-1.0) mg/dL 0.2 AST (15-37) U/L 20 ALT (14-59) U/L 36 Alkaline Phosphatase (46-116) U/L 146 H Lactate Dehydrogenase (81-234) U/L 187 Total Protein (6.4-8.2) g/dL 7.5 Albumin (3.4-5.0) g/dL 3.1 L Urine Color (Yellow) Yellow Urine Clarity (Clear) Cloudy Urine pH (5-8) 8.5 H Ur Specific [place] (1.005-1.025) 1.015 Urine Protein (Negative) mg/dL Negative Urine Ketones (Negative) mg/dL Negative Urine Blood (Negative) Trace-intact H Urine Nitrite (Negative) Negative Urine Bilirubin (Negative) Negative Urine Urobilinogen (Up to 0.2) mg/dL 0.2 Ur Leukocyte Esterase (Negative) Negative Urine RBC (0-2) HPF 0-2 Urine WBC (0-5) HPF 0-2 Ur Epithelial Cells (Negative) HPF Moderate Urine Crystals (Negative) HPF Few Amorphous Urine Bacteria (Negative) HPF Moderate Urine Casts (Negative) LPF Negative Urine Mucus (Negative) Trace Ur Culture Indicated? No/Sq. Contamination Ur Random Creatinine mg/dL 16.72 U Random Total Protein mg/dL 6.6 U [place] Prot/Creat Ratio 0.39 Urine Glucose (Negative) mg/dL Negative Patient ABO/Rh A Negative Antibody Screen POSITIVE HPI General Mode of arrival: ambulatory. Date/Time Provider Initiated Documentation: 05/11/23 19:03. Limitations to Documentation: no limitations. Information obtained by: patient. HPI Narrative: 32yo F two prior c-sections reportedly 33w gestation gets care at [facility] presenting for severe headache and nausea. First noted symptoms on Thanksgiving, seemed to get better but now worse. No vomiting, but severe nausea which has not been the case for her recently this . No abdominal pain, visual changes, LE edema, vaginal bleeding, or vaginal discharge. +photophobia. Is feeling the baby move, maybe a little bit less than usual today. No history of GDM or preeclampsia in this or prior pregnancies. BP typically runs low, was monitoring her BP in the 2nd trimester because of hypotension. At most is 100's-115's systolic. She has had migraines in the past and this feels somewhat similar, these typically resolve with naproxen however cannot take currently. She is otherwise in her usual state of health with no fevers, chills, rash, dysuria, hematuria, chest pain, shortness of breath, or other concerns. Related Data Home Medications Medication Instructions Recorded Confirmed ondansetron HCl 4 mg tablet 4 mg PO Q8H PRN nausea and 10/20/19 05/11/23 (Zofran) vomiting #10 tabs calcium carbonate 200 mg calcium 200 mg PO BID 12/04/19 05/11/23 (500 mg) chewable tablet (Tums) fluoxetine 60 mg tablet 40 mg PO DAILY 12/04/19 05/11/23 naproxen sodium 275 mg tablet 550 mg PO Q8H 12/04/19 05/11/23 norgestrel 0.3 mg-ethinyl 1 tab PO DAILY 12/04/19 05/11/23 estradiol 30 mcg tablet (Go (28)) omeprazole 20 mg capsule,delayed 20 mg PO DAILY 12/04/19 05/11/23 release pantoprazole 40 mg tablet,delayed 40 mg PO DAILY #30 tabs 12/19/19 05/11/23 release calcium gluconate 500 mg tablet 250 mg PO DAILY 01/09/23 05/11/23 sertraline 25 mg tablet 25 mg PO DAILY 01/09/23 05/11/23 Previous Rx's Medication Instructions Recorded ondansetron HCl 4 mg tablet 4 mg PO Q8H PRN nausea and 10/20/19 (Zofran) vomiting #10 tabs pantoprazole 40 mg tablet,delayed 40 mg PO DAILY #30 tabs 12/19/19 release Allergies Allergy/AdvReac Type Severity Reaction Status Date / Time Corticosteroids Allergy It Unverified 05/11/23 19:06 (Glucocorticoids) increased the pressure in my eye ranitidine AdvReac Severe Massive Unverified 05/11/23 19:06 migraine General Stated Complaint: Headache CARSON: 3 Review of Systems Narrative: see HPI PFSH All Active Problems (Updated 05/11/23 @ 22:09 by Teresa Zaman MD) Headache (Acute) Fatty liver (Acute) Abdominal pain (Acute) Chronic GERD (Acute) Nausea (Acute) Medical History Anxiety Memory loss Migraine variant Shoulder pain De Quervain's disease (tenosynovitis) Prolonged depressive reaction as adjustment reaction Folliculitis Tendonitis of ankle or foot GERD (gastroesophageal reflux disease) Depression Surgical History History of section Social History Smoking/Tobacco Use Status: Never Smoking risk assessment performed?: Yes Alcohol Intake: never Drug use: Never Substance use type: does not use Do you feel safe at home: Yes Do you feel safe in your relationship?: Yes Exam Narrative Exam Narrative: General: Alert,appears uncomfortable. Head: Normocephalic, atraumatic Neck: Trachea midline, Neck supple. Cardiac: RRR, no murmurs appreciated Resp: No respiratory distress. CTAB. Abd: Soft, non-distended. No palpable uterine ctx. Mild upper abdominal discomfort with palpation. Extremities: No deformities. No peripheral edema. Neurologic: GCS 15. Moves all extremities freely against gravity Course Vital Signs Vital signs: Vital Signs Temperature 36.4 C L 05/11/23 19:03 Pulse 109 H 05/11/23 19:03 Respiratory Rate 18 05/11/23 19:03 Blood Pressure 142/89 H 05/11/23 19:03 Pulse Oximetry 100 05/11/23 19:03 Temperature 36.7 C 05/11/23 19:25 Temperature Source Tympanic 05/11/23 19:25 Pulse 100 H 05/11/23 19:25 Respiratory Rate 16 05/11/23 19:25 Respiratory Effort Normal 05/11/23 19:25 Blood Pressure 130/86 05/11/23 19:25 Blood Pressure Position Sitting 05/11/23 19:25 Pulse Oximetry 99 05/11/23 19:25 Oxygen Delivery Method Room Air 05/11/23 19:25 Oxygen Flow Rate 0 05/11/23 19:03 Pain Level 7 05/11/23 19:25
[2023-05-11 20:07] LABS: Abs Immature Grans 0.04 10^3/uL (0.0-0.06); Absolute Basophil Count 0.03 10^3/uL (0.0-0.2); Absolute Eosinophil Count 0.08 10^3/uL (0.0-0.7); Absolute Lymphocyte Count 2.21 10^3/uL (1.2-3.4); Absolute Monocyte Count 0.55 10^3/uL (0.1-0.8); Absolute Neutrophil Count 5.94 10^3/uL (1.2-6.7); Basophils % 0.3; Eosinophils % 0.9; HCT 35.7 % (36.0-46.0); HGB 11.8 g/dL (11.2-15.7); Immature Grans % 0.5; MCH 27.6 pg (27.0-33.0); MCHC 33.1 % (32.0-36.0); MCV 83 fL (80-95); MPV 10.1 fL (8.0-11.0); Monocytes % 6.2; Neutrophils % 67.1; Platelet Count 217 10^3/uL (130-400); RBC 4.28 10^6/uL (3.93-5.22); RDW 14.6 % (11.7-14.6); RDW-SD 44.1 fL; WBC 8.85 10^3/uL (4.4-10.8)
[2023-05-11 20:11] LABS: Bilirubin Negative (Negative); Blood Trace-intact (Negative); Clarity Cloudy (Clear); Glucose Negative (Negative); Ketones Negative (Negative); Leukocyte Esterase Negative (Negative); Nitrite Negative (Negative); Specific Gravity 1.015 (1.005-1.025); Urobilinogen 0.2 mg/dL (Up to 0.2); pH 8.5 (5-8)
[2023-05-11 20:17] LABS: Epithelial Cells Moderate HPF (Negative); RBC 0-2 HPF (0-2); WBC 0-2 HPF (0-5)
[2023-05-11 20:18] LABS: COMMENT (LAB VIEW ONLY) 16.72 mg/dL; Casts Negative LPF (Negative); Crystals Few Amorphous HPF (Negative); Mucus Trace (Negative); PROTEIN 6.6 mg/dL; Prot/Crea Ur Ratio 0.39
[2023-05-11 20:21] LABS: Bacteria Moderate HPF (Negative); C & S Indicated? No/Sq. Contamination; LDH 187 U/L (81-234); Magnesium 2.1 mg/dL (1.8-2.4)
[2023-05-11 20:22] LABS: ALT 36 U/L (14-59); AST 20 U/L (15-37); Albumin 3.1 g/dL (3.4-5.0); Alkaline Phosphatase 146 U/L (46-116); BUN 6 mg/dL (7-18); Bilirubin, Total 0.2 mg/dL (0.2-1.0); CREATININE 0.5 mg/dL (0.55-1.02); Calcium 9.8 mg/dL (8.5-10.1); Chloride 104 mmol/L (98-107); Estimated GFR 127.72 (mL/min/1.73m2); Glucose 108 mg/dL (74-106); Potassium 3.6 mmol/L (3.5-5.1); Sodium 139 mmol/L (136-145); Total Protein 7.5 g/dL (6.4-8.2)
[2023-05-11] MEDS: Normal Saline 1,000 ML 1000 ML IV (20:45)
[2023-05-11] MEDS: Acetaminophen 325 MG TAB 650 MG PO (20:49)
[2023-05-11] MEDS: Metoclopramide 10 MG/2 ML VIAL IVP (20:50)
--- NOTE | 2023-05-11 21:44 | PDOC.NST_ITS ---
Date of service: 05/11/23 Time of Service: 21:44 NST Evaluation Reason for NST Reasons for Nonstress Test: OTHER, SEE COMMENT Reason for NST Other: pt sent from er for non stress test Test and Monitor Explained Test/Monitor Explained: Test Explained, Monitor Explained and Patient Verbalized Understanding Vital Signs Blood Pressure: 120/70 Pulse: 94 Temperature: 207.9 F NST Information Date on Monitor: 05/11/23 Time on Monitor: 20:02 Date off Monitor: 05/11/23 Time off Monitor: 20: Total Time on Monitor: 27 NST Interventions: PO Hydration NST Evaluation Patient States Movement: Present FHR Baseline: 120 Variability: Moderate 6-25 bpm Accelerations: 15x15 Decelerations: None NST Results: Reactive Note Ultrasound Done: N/A. NST Note Note: Reactive category 1 heart rate tracing. Discharge home. Follow-up with primary care physicians at [facility] NST Reviewed and Verified by: Maribeth Doll
== END 2023-05-11 22:14 | disposition home or self-care (01) ==
PROVIDERS: Emergency Provider Student in an Organized Health Care Education/Training Program; PCP Physician Assistant
DX: R51.9 Headache, unspecified (principal); R11.0 Nausea; O99.353 Diseases of the nervous system complicating pregnancy, third trimester
CPT/HCPCS: 80053; 86850; 86900; 86901; 96374; 99284; 81003; 81015; 82565; 83615; 83735; 84156; 85025; 86870; J2765

== ENCOUNTER 2023-07-30 17:11 | Emergency (ER) | payer MEDICAID, SELFPAY ==
[2023-07-30 17:16] VITALS: BP 119/71; PULSE 61; RESP 14; TEMP 36.6; O2SAT 99
[2023-07-30 17:22] VITALS: BP 119/71; PULSE 61; RESP 14; TEMP 36.6; O2SAT 99
--- NOTE | 2023-07-30 17:37 | ED.GENADUL_ITS ---
HPI General Mode of arrival: ambulatory . Date/Time Provider Initiated Documentation: 07/30/23 17:22 . Limitations to Documentation: no limitations . Information obtained by: patient, RN notes reviewed and old records reviewed . HPI Narrative: 32-year-old female presents to the ER with a chief complaint of frontal headache and posterior occipital headache for the last 4 days. She was seen at urgent care yesterday and given some Benadryl Zofran Tylenol which helped for a little while and has since come back. She reports nausea no vomiting. She is breast- feeding she is approximately 6 weeks. She reports that she can pump and dump. She did take Tylenol Sinus earlier today. Other past medical history include anxiety, migraines, depression, folliculitis GERD. Related Data Home Medications Medication Instructions Recorded Confirmed ondansetron HCl 4 mg tablet 4 mg PO Q8H PRN nausea and 10/20/19 07/30/23 (Zofran) vomiting #10 tabs calcium carbonate 200 mg calcium 200 mg PO BID 12/04/19 07/30/23 (500 mg) chewable tablet (Tums) fluoxetine 60 mg tablet 40 mg PO DAILY 12/04/19 07/30/23 naproxen sodium 275 mg tablet 550 mg PO Q8H 12/04/19 07/30/23 norgestrel 0.3 mg-ethinyl 1 tab PO DAILY 12/04/19 07/30/23 estradiol 30 mcg tablet (Go (28)) omeprazole 20 mg capsule,delayed 20 mg PO DAILY 12/04/19 07/30/23 release pantoprazole 40 mg tablet,delayed 40 mg PO DAILY #30 tabs 12/19/19 07/30/23 release calcium gluconate 500 mg tablet 250 mg PO DAILY 01/09/23 07/30/23 sertraline 25 mg tablet 25 mg PO DAILY 01/09/23 07/30/23 Previous Rx's Medication Instructions Recorded ondansetron HCl 4 mg tablet 4 mg PO Q8H PRN nausea and 10/20/19 (Zofran) vomiting #10 tabs pantoprazole 40 mg tablet,delayed 40 mg PO DAILY #30 tabs 12/19/19 release Allergies Allergy/AdvReac Type Severity Reaction Status Date / Time Corticosteroids Allergy It Unverified 07/30/23 17:24 (Glucocorticoids) increased the pressure in my eye ranitidine AdvReac Severe Massive Unverified 07/30/23 17:24 migraine General Stated Complaint: Headache CARSON: 3 Review of Systems All systems reviewed & are unremarkable except as noted in HPI and below Constitutional Constitutional: Reports as per HPI, Denies fever(s) and Reports headache(s) ENT Ears, Nose, Mouth, and Throat: Reports headache(s) and Reports nasal congestion Respiratory Respiratory: Denies cough and Denies pain with cough Gastrointestinal Gastrointestinal: Denies abdominal pain, Denies diarrhea and Reports nausea Neurologic Neurologic: Reports headache(s) Exam Narrative Exam Narrative: Constitutional: Alert and oriented x3. Appears stated age. Normal body habitus. Head: Normocephalic, no trauma. Eyes: Pupils PERRL, Red reflex noted, EOM's intact. Eyelids symmetrical without lesions, discharge, or swelling. ENT: Bilateral TM's WNL, External ear normal to inspection, no mastoid TTP, swelling, or erythema, Nasal turbinates WNL, no nasal discharge. Normal dentition, Posterior pharynx WNL, no exudate. Chest: RRR, Normal S1, S2, distal pulses intact. Resp: Lungs clear to auscultation bilaterally, no wheezes, rales, or rhonchi. Abdomen: Soft, non-distended, Normoactive bowel sounds all 4 quads. Musculoskeletal: Normal gait, 5/5 strength to all four extremities. Skin: No suspicious rashes or lesions. Capillary refill less than 2 sec. Neurologic: Cranial nerves II-XII intact. Alert and oriented x 3. Motor: No deficits noted. Sensory: Intact bilaterally all 4 extremities. Reflexes: DTR's intact bilaterally.. Hematologic/Lymphatic: No ecchymosis, no lymphadenopathy. Course Vital Signs Vital signs: Vital Signs Temperature 36.6 C 07/30/23 17:16 Pulse 61 07/30/23 17:16 Respiratory Rate 14 07/30/23 17:16 Blood Pressure 119/71 07/30/23 17:16 Pulse Oximetry 99 07/30/23 17:16 Temperature 36.6 C 07/30/23 17: Temperature Source Oral 07/30/23 17: Pulse 61 07/30/23 17: Respiratory Rate 14 07/30/23 17:22 Respiratory Effort Normal, Non-Labored 07/30/23 17:22 Blood Pressure 119/71 07/30/23 17:22 Blood Pressure Position Sitting 07/30/23 17:22 Pulse Oximetry 99 07/30/23 17:22 Oxygen Delivery Method Room Air 07/30/23 17:22 Oxygen Flow Rate 0 07/30/23 17:22 Pain Level 3 07/30/23 17:25 Medical Decision Making 32-year-old female presents to the ER with a chief complaint of frontal headache and posterior occipital headache for the last 4 days. She was seen at urgent care yesterday and given some Benadryl Zofran Tylenol which helped for a little while and has since come back. She reports nausea no vomiting. She is breast- feeding she is approximately 6 weeks. She reports that she can pump and dump. She did take Tylenol Sinus earlier today. Other past medical history include anxiety, migraines, depression, folliculitis GERD. Patient complaining of frontal headache x 4 days with posterior occipital headache. No signs of red flags. Patient appears nontoxic. Denies any recent trauma or falls or head injuries. Neurologically intact no focal motor neurodeficits. IV normal saline, Compazine Benadryl and Toradol ordered. Will reevaluate after medication administration. 1842: On patient re-evaluation, she is sleeping, breathing eupneic. Reports improvement in pain, plan to discharge home with follow up with PCP. This text was generated using [employer]-STAR[employer] system, please disregard any oddities of phrase or misspellings. Quality:SDOH Health Related Social Needs: No Data to Display PFSH All Active Problems (Updated 07/30/23 @ 18:44 by Cheryl Servin NP) Headache (Acute) Fatty liver (Acute) Abdominal pain (Acute) Chronic GERD (Acute) Nausea (Acute) Medical History Anxiety Memory loss Migraine variant Shoulder pain De Quervain's disease (tenosynovitis) Prolonged depressive reaction as adjustment reaction Folliculitis Tendonitis of ankle or foot GERD (gastroesophageal reflux disease) Depression Surgical History History of section Social History Smoking/Tobacco Use Status: Never Smoking risk assessment performed?: Yes Alcohol Intake: never Drug use: Never Substance use type: does not use Do you feel safe at home: Yes Do you feel safe in your relationship?: Yes Discharge Plan Disposition Patient Disposition: Home Condition: Stable Discharge Details Clinical Impression: Headache Primary Care Provider: Chely Cartwright ED Provider: Cheryl Servin Home Meds and New Rx's Prescriptions: No Action calcium carbonate [Tums] 200 mg calcium (500 mg) tablet,chewable 200 mg PO BID Patient Comments: pt states not taking 01/09/23 fluoxetine 60 mg tablet 40 mg PO DAILY Hold Instructions: pt states not taking 05/10/23 Patient Comments: pt states not taking 01/09/23 omeprazole 20 mg capsule,delayed release(DR/EC) 20 mg PO DAILY Hold Instructions: pt states not taking 05/10/23 Patient Comments: pt states not taking 01/09/23 naproxen sodium 275 mg tablet 550 mg PO Q8H Hold Instructions: pt states not taking 05/10/23 Patient Comments: pt states not taking 01/09/23 [place] (28) 0.3-30 mg-mcg tablet 1 tab PO DAILY Hold Instructions: pt states not taking 05/10/23 Patient Comments: pt states not taking 01/09/23 pantoprazole 40 mg tablet,delayed release (DR/EC) 40 mg PO DAILY Qty: 30 12RF Patient Comments: pt states not taking 01/09/23 ondansetron HCl [Zofran] 4 mg tablet 4 mg PO Q8H PRN (Reason: nausea and vomiting) Qty: 10 0RF Hold Instructions: pt states not taking 05/10/23 Patient Comments: pt states not taking 01/09/23 sertraline 25 mg Tablet 25 mg PO DAILY calcium gluconate 500 mg Tablet 250 mg PO DAILY Hold Instructions: pt states not taking 05/10/23 Discharge Instructions Instructions: General Headache (ED) Additional Instructions: Pump and Dump breast milk for next 12 hours. Follow up with primary care provider in 3-5 days. Return to ED sooner if any worsening or concerns. Increase oral fluids. Please take Tylenol or Ibuprofen with food every 4-6 hours as needed for pain and swelling. Referrals: Chely Cartwright [Primary Care Provider] - 3 days Discharge Data Discharge Date/Time-TO BE ENTERED AT DEPARTURE: 07/30/23 18:52
[2023-07-30] MEDS: Prochlorperazine 10 MG/2 ML VIAL 5 MG IVP (17:47)
[2023-07-30] MEDS: diphenhydrAMINE 50 MG/ML VIAL 25 MG IVP (17:47)
[2023-07-30] MEDS: Ketorolac 15 MG/ML VIAL IVP (17:48)
[2023-07-30] MEDS: Normal Saline 1,000 ML 1000 ML IV (17:48)
[2023-07-30 18:52] VITALS: BP 116/78; PULSE 75; RESP 13; O2SAT 98
== END 2023-07-30 18:52 | disposition home or self-care (01) ==
PROVIDERS: Emergency Provider Registered Nurse Emergency; PCP Physician Assistant
DX: R51.9 Headache, unspecified (principal)
CPT/HCPCS: 96361; 96374; 96375; 99284; J0780; J1200; J1885